=== PATIENT | male | born 1955 | race Caucasian/White ===

== ENCOUNTER 2017-01-26 12:06 | Emergency (ER) | payer MEDICARE ==
[~2017-01-26] VITALS: Ht 182.9 cm; Wt 88.0 kg
[~2017-01-26 12:06] MED LIST: /OCUVTA PO; /PANT40TA; /PANT40TA OR; /WARF5TA; /WARF5TA OR; /WARF5TA PO; ASPI81TA85 PO; ATORVASTATIN PO; BABY81CH; BABY81CH OR; BACT800T OR; BENI20TA11; BENI20TA11 OR; BENI40TA3 PO; CLOP75TA2 PO; COUM10TA; COUM7.5T PO; ENOX40SY; FISH1000 PO; GLUC500T; KEFL500C OR; LIPI20TA OR; LIPI80TA; LOPR50TA; LOPR50TA OR; METFPOW4; METO50TA2 PO; NICO21DI4; NITR0.4S; OMEP20CA3 PO; OMEP20TA7 OR; PAIN325T OR; PERC2.5T PO; PERCOCET PO; PLAV75TA2; PLAV75TA2 OR; TYLE325T5 PO; VIBR100C PO; metformin
[2017-01-26] MEDS ORDERED: XYZA5TAB4 PO (12:34)
[2017-01-26] MEDS ORDERED: AMLO10TA2 PO (12:34)
[2017-01-26] MEDS ORDERED: GABA-279 PO (12:34)
[2017-01-26] MEDS ORDERED: XARE20TA PO (12:34)
[2017-01-26 12:54] LABS: BASO % 0.7 % (0.0-1.0); EOS # 0.3 K/mm3 (0.0-0.50); EOS % 4.3 % (0.0-3.0); LARGE UNSTAINED CELL # 0.1 K/mm3 (0.0-0.4); LARGE UNSTAINED CELL % 1.7 % (0.0-4.0); LYMPH # 2.2 K/mm3 (1.5-4.5); LYMPH % 32.1 % (24.0-44.0); MEAN CORPUSCULAR HEMOGLOBIN 31.9 pg (27.0-33.0); MEAN CORPUSCULAR VOLUME 91.1 fl (80.0-96.0); MONO # 0.5 K/mm3 (0.0-0.8); MONO % 7.5 % (0.0-5.0); NEUTROPHILS # 3.8 K/mm3 (1.8-7.7); NEUTROPHILS % 53.7 % (36.0-66.0); PLATELET COUNT, AUTOMATED 196 k/mm3 (150-450); RED CELL DISTRIBUTION WIDTH 12.6 % (11.5-14.5)
[2017-01-26 13:02] LABS: INR 1.84
--- NOTE | 2017-01-26 13:12 | REP ---
NONCONTRAST HEAD CT: HISTORY: Headache and vertigo. COMPARISON STUDY: October 30, 2015 FINDINGS: Bone window settings demonstrate an intact bony calvarium. There is mucosal thickening affecting the frontal, ethmoidal, sphenoidal, and maxillary sinuses, consistent with polysinusitis. These changes are a little more prominent than on the comparison study. No intraorbital abnormality is seen. There is mild diffuse cerebral atrophy. Vascular calcification is again noted in the carotid arteries distally and in the right distal vertebral artery. There is no evidence of intracranial hemorrhage. No extra-axial fluid collection is seen. No infarct, mass, or midline shift is observed. Childers-white differentiation pattern is normal. IMPRESSION: Vascular calcification and diffuse mild atrophy again noted. No acute intracranial abnormality. Polysinusitis changes. Signed by Gilmar Gan MD 01/26/2017 01:19 P
[2017-01-26] MEDS ORDERED: NS 1,000 ML IV ONE (13:15)
[2017-01-26 13:17] LABS: ANION GAP 8 MEQ/L (8-16); BLOOD UREA NITROGEN 12 MG/DL (7-18); CALCIUM LEVEL 8.9 MG/DL (8.8-10.2); CARBON DIOXIDE LEVEL 26 MEQ/L (21-32); CHLORIDE LEVEL 100 MEQ/L (98-107); CREATININE FOR GFR 1.05 MG/DL (0.70-1.30); GLOMERULAR FILTRATION RATE > 60.0 (>49); GLUCOSE, FASTING 100 MG/DL (80-110); POTASSIUM SERUM 4.1 MEQ/L (3.5-5.1); SODIUM LEVEL 134 MEQ/L (136-145)
--- NOTE | 2017-01-26 13:18 | REP ---
CT abdomen and pelvis without IV or oral contrast: History: Abdominal pain and vomiting. Comparison study June 07, 2013. 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 There is mild bilateral lower lobe linear fibrosis in the lung lomas unchanged. No pleural effusion or upper abdominal ascites is seen. The liver and spleen are normal in size and homogeneous in texture. No adrenal lesion is seen. The gallbladder and pancreas are unremarkable. There is vascular calcification. No evidence of aortic aneurysm. There is no evidence of hydronephrosis or renal mass on either side. No calculus is observed. No retroperitoneal mass or adenopathy is seen. A normal appendix is observed in the right lower quadrant. Small and large intestinal bowel loops are unremarkable in the abdomen and pelvis. No abdominal wall defect is seen. Urinary bladder, prostate, and seminal vesicles are unremarkable. Bone window settings show no bony destructive lesion. There are some degenerative changes in the lumbar spine and spurring is noted in the symphysis pubis. Impression: No acute abdominal or pelvic abnormality. Normal appendix seen. No evidence of urinary tract calculus. Signed by Gilmar Gan MD 01/26/2017 01:19 P
[2017-01-26 13:24] LABS: ALBUMIN 3.7 GM/DL (3.2-5.2); ALBUMIN/GLOBULIN RATIO 1.16 (1.00-1.93); ALKALINE PHOSPHATASE 167 U/L (45-117); ALT/SGPT 98 U/L (12-78); AST/SGOT 87 U/L (15-37); BILIRUBIN,DIRECT 0.1 MG/DL (0.0-0.2); BILIRUBIN,TOTAL 0.3 MG/DL (0.2-1.0); FREE T4 1.23 NG/DL (0.76-1.46); TOTAL PROTEIN 6.9 GM/DL (6.4-8.2)
--- NOTE | 2017-01-26 13:55 | REP ---
Clinical: Dizziness. Technique: PA and lateral. Comparison: 04/23/2016. Findings: Mediastinum and cardiac silhouette are stable. Evidence for prior sternotomy and CABG again noted. Lung lomas demonstrate chronic stable changes without acute consolidation, effusion, or pneumothorax. Impression: Chronic stable changes. No acute cardiopulmonary process appreciated. Signed by Pradip Schwartz MD 01/26/2017 01:46 P
[2017-01-26 15:31] VITALS: BP 133/78
--- NOTE | 2017-01-27 10:12 | ECGEPIP ---
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
== END 2017-01-26 15:33 | disposition left against medical advice (07) ==
LOC: M ED 13:22
DX: I95.9 Hypotension, unspecified (principal); R42 Dizziness and giddiness; I25.10 Atherosclerotic heart disease of native coronary artery without angina pectoris; I10 Essential (primary) hypertension; K21.9 Gastro-esophageal reflux disease without esophagitis; E78.5 Hyperlipidemia, unspecified; R51 Headache; F17.200 Nicotine dependence, unspecified, uncomplicated; Z86.711 Personal history of pulmonary embolism; Z95.1 Presence of aortocoronary bypass graft; Z79.01 Long term (current) use of anticoagulants; Z79.82 Long term (current) use of aspirin; Z79.899 Other long term (current) drug therapy; Z88.5 Allergy status to narcotic agent; Z88.8 Allergy status to other drugs, medicaments and biological substances; Z91.030 Bee allergy status

== ENCOUNTER → 2017-05-13 | Outpatient (REF) | payer MEDICARE ==
[~2017-05-13] MED LIST changes: +AMLO10TA2 PO; +GABA-279 PO; +XARE20TA PO; +XYZA5TAB4 PO
[2017-05-13 15:16] LABS: FERRITIN 27 NG/ML (26-388); PERCENT SATURATION 9.5 % (19.7-50.0); TOTAL IRON BINDING CAPACITY 357 UG/DL (250-450); TOTAL PROTEIN 7.3 GM/DL (6.4-8.2)
[2017-05-13 15:52] LABS: INR 1.68
[2017-05-15 00:06] LABS: SJOGREN'S ANTI SS-A <0.2 AI (0.0-0.9); SJOGREN'S ANTI SS-B 0.7 AI (0.0-0.9); TISSUE TRANSGLUTAMINASE IgG <2 U/mL (0-5)
[2017-05-18 10:58] LABS: ALBUMIN % 54.8 % (55.8-66.1); GAMMA GLOBULIN % 15.2 % (11.1-18.8)
== END ==
LOC: M LAB REF 14:18
PROVIDERS: ATTEND Nurse Practitioner Family
DX: R94.5 Abnormal results of liver function studies (principal)

== ENCOUNTER → 2017-06-15 | Outpatient (CLI) | payer MEDICARE ==
[~2017-06-15] MED LIST changes: +GASTROGRAFIN SOLUTION 30ML (Q9963) As Ordered ONE; +ISOVUE-370 76% 100ML VIAL (Q9967) As Ordered ONE
--- NOTE | 2017-06-15 11:17 | REP ---
CT of the abdomen pelvis without and with IV contrast and with bowel contrast: Comparison is 01/26/2017. The visualized lung lomas demonstrate a 4 mm nodule and a 6 mm nodule anteriorly inferiorly in the upper lobe of the right lung. These are unchanged from a prior chest CT dated 04/04/2013. The hepatic parenchyma is homogeneous on both phases of the study. There are no hepatic masses. The radiodensity of the liver is similar to the spleen after IV contrast and slightly greater than the spleen without IV contrast. There is no evidence of hepato steatosis. There is no cholelithiasis. Gallbladder is unremarkable. There is no intrahepatic or extrahepatic biliary duct dilatation. The pancreas is unremarkable. The spleen is normal size and unremarkable. The adrenals, kidneys and abdominal aorta are unremarkable except for occasional calcified atheroma. There is no retroperitoneal adenopathy. There is no bowel distension. Mesentery is unremarkable. Pelvis: The appendix is unremarkable. The bladder is unremarkable. There is wall thickening of the sigmoid colon. This is nonspecific and could be artifact from under distension or could be evidence for colitis in the appropriate clinical setting. There is no ascites or adenopathy. Impression: Stable right lung nodules as described. The liver is unremarkable on both phases of the study. There is no biliary duct dilatation. There is no ascites or adenopathy. There is wall thickening of the sigmoid colon. This is nonspecific and could be artifact from under distension or could be evidence for colitis in the appropriate clinical setting. No diverticuli are identified. Signed by Wagner Engle MD 06/15/2017 11:09 A
== END ==
LOC: M RAD 08:47
PROVIDERS: ATTEND Internal Medicine Gastroenterology
DX: R63.4 Abnormal weight loss (principal)
CPT/HCPCS: 74178; Q9963; Q9967

== ENCOUNTER → 2017-11-12 | Outpatient (CLI) | payer MEDICARE ==
[2017-11-12 17:43] LABS: URIC ACID 8.4 MG/DL (3.5-7.2)
== END ==
LOC: M WUC 10:54
DX: M79.671 Pain in right foot (principal)
CPT/HCPCS: 84550

== ENCOUNTER → 2018-12-14 | Outpatient (CLI) | payer MEDICARE ==
[~2018-12-14] MED LIST changes: -/OCUVTA PO; -/PANT40TA; -/PANT40TA OR; -/WARF5TA; -/WARF5TA OR; -/WARF5TA PO; -AMLO10TA2 PO; +AMLO10TA5 PO; +COUM1TAB17; +COUM1TAB17 OR; +COUM1TAB17 PO; -ENOX40SY; +GABA-1171 PO; -GABA-279 PO; -GASTROGRAFIN SOLUTION 30ML (Q9963) As Ordered ONE; -ISOVUE-370 76% 100ML VIAL (Q9967) As Ordered ONE; +LOVE1INJ; +OXYC1TAB23 PO; -PERCOCET PO; +PROS2TAB2 PO; +PROT1TAB2; +PROT1TAB2 OR
[2018-12-14 15:14] LABS: BASO # 0.1 10^3/uL (0.0-0.2); BASO % 0.3 % (0.0-1.0); EOS % 0.1 % (0.0-3.0); HEMATOCRIT 37.3 % (42.0-52.0); HEMOGLOBIN 12.5 g/dl (13.5-17.5); LYMPH # 2.3 10^3/uL (1.5-4.5); LYMPH % 14.1 % (24.0-44.0); MEAN CORPUSCULAR HEMOGLOBIN 28.9 pg (27.0-33.0); MEAN CORPUSCULAR HGB CONC 33.5 g/dl (32.0-36.5); MEAN CORPUSCULAR VOLUME 86.3 fl (80.0-96.0); MONO % 12.4 % (0.0-5.0); NEUTROPHILS % 72.6 % (36.0-66.0); PLATELET COUNT, AUTOMATED 276 10^3/uL (150-450); RED BLOOD COUNT 4.32 10^6/uL (4.30-6.10); WHITE BLOOD COUNT 16.5 10^3/uL (4.0-10.0)
--- NOTE | 2018-12-14 15:20 | REP ---
Clinical: Left lower extremity pain. Technique: Real time vazquez scale and color Doppler evaluation using linear high frequency transducer. Findings: Ultrasound examination of the left lower extremity deep venous structures from the common femoral vein to the popliteal vein demonstrates normal compressibility, flow, and wave patterns and response respiration and augmentation. There is no evidence for deep venous thrombosis. Connecting fluid collections are identified along the medial and lateral aspect of the knee measuring 11.7 x 2.2 x 4.1 cm, and 9.0 x 2.2 x 5.4 cm respectively. Impression: 1. No deep venous thrombosis. 2. Connecting fluid collection along the medial and lateral aspect of the knee. Electronically Signed by Pradip Schwartz MD 12/14/2018 03:12 P
[2018-12-14 15:41] LABS: MONO # 2.1 10^3/uL (0.0-0.8)
== END ==
LOC: M LAB 14:03
PROVIDERS: ATTEND Physician Assistant
DX: M79.605 Pain in left leg (principal)

== ENCOUNTER → 2019-06-06 | Outpatient (REF) | payer MEDICARE ==
[2019-06-07 08:52] LABS: PTH INTACT 25.4 PG/ML (18.5-88.0)
== END ==
LOC: M LAB REF 18:45
PROVIDERS: ATTEND Nurse Practitioner Adult Health
DX: D72.829 Elevated white blood cell count, unspecified (principal); E83.52 Hypercalcemia; K21.9 Gastro-esophageal reflux disease without esophagitis

== ENCOUNTER 2019-12-25 15:46 | Inpatient (IN) | payer MEDICARE ==
[~2019-12-25] VITALS: Ht 182.9 cm; Wt 86.0 kg
[2019-12-25 16:46] LABS: BASO # 0.1 10^3/uL (0.0-0.2); BASO % 0.6 % (0.0-1.0); EOS # 0.2 10^3/uL (0.0-0.5); HEMATOCRIT 28.9 % (42.0-52.0); HEMOGLOBIN 10.2 g/dl (13.5-17.5); LYMPH # 2.1 10^3/uL (1.5-5.0); LYMPH % 21.6 % (24.0-44.0); MEAN CORPUSCULAR HEMOGLOBIN 29.5 pg (27.0-33.0); MEAN CORPUSCULAR HGB CONC 35.3 g/dl (32.0-36.5); MEAN CORPUSCULAR VOLUME 83.5 fl (80.0-96.0); MONO # 0.9 10^3/uL (0.0-0.8); MONO % 9.1 % (0.0-5.0); NEUTROPHILS # 6.5 10^3/uL (1.5-8.5); NEUTROPHILS % 66.2 % (36.0-66.0); PLATELET COUNT, AUTOMATED 323 10^3/uL (150-450); RED BLOOD COUNT 3.46 10^6/uL (4.30-6.10); WHITE BLOOD COUNT 9.9 10^3/uL (4.0-10.0)
[2019-12-25 17:12] LABS: ALT/SGPT 80 U/L (12-78); BILIRUBIN,DIRECT 0.1 MG/DL (0.0-0.2); BILIRUBIN,TOTAL 0.4 MG/DL (0.2-1.0); BLOOD UREA NITROGEN 10 MG/DL (7-18); CALCIUM LEVEL 9.7 MG/DL (8.8-10.2); CARBON DIOXIDE LEVEL 24 MEQ/L (21-32); CHLORIDE LEVEL 95 MEQ/L (98-107); CK-MB VALUE MASS 2.3 NG/ML (<3.6); CPK CREATINE PHOSPHOKINASE 105 U/L (39-308); CREATININE FOR GFR 0.89 MG/DL (0.70-1.30); GLOMERULAR FILTRATION RATE > 60.0 (>49); GLUCOSE, FASTING 89 MG/DL (70-100); LIPASE 191 U/L (73-393); MAGNESIUM LEVEL 1.3 MG/DL (1.8-2.4); MB/CK RELATIVE INDEX 2.19 (< OR =4); PHOSPHORUS LEVEL 2.5 MG/DL (2.5-4.9); POTASSIUM SERUM 4.3 MEQ/L (3.5-5.1); SODIUM LEVEL 124 MEQ/L (136-145); TOTAL PROTEIN 8.1 GM/DL (6.4-8.2); TROPONIN I < 0.02 NG/ML (< 0.10)
--- NOTE | 2019-12-25 17:30 | REP ---
CHEST, SINGLE VIEW: Single view of the chest is performed. There is no acute infiltrate. The heart is normal in size. Mediastinal silhouette is unchanged. Multiple sternal wires and mediastinal clips are present. IMPRESSION: No acute pulmonary disease. Electronically Signed by Wagner Childers MD 12/25/2019 07:50 P
[2019-12-25 17:52] LABS: FREE T4 1.26 NG/DL (0.76-1.46)
[2019-12-25] MEDS ORDERED: PANTOPRAZOLE 40MG INJ (PROTONIX) (C9113) IV ONE (18:00)
[2019-12-25] MEDS ORDERED: ECOT81TA5 PO (18:16)
[2019-12-25] MEDS ORDERED: ATOR40TA75 PO (18:16)
[2019-12-25] MEDS ORDERED: FISH1000 PO (18:16)
[2019-12-25] MEDS ORDERED: FLON1SPR (18:16)
[2019-12-25] MEDS ORDERED: OLME20TA2 PO (18:16)
[2019-12-25] MEDS ORDERED: METO25TA4 PO (18:16)
[2019-12-25] MEDS ORDERED: OMEP-218 PO (18:16)
--- NOTE | 2019-12-25 18:44 | HPEPDOC ---
General Date of Admission Dec 25, 2019 at 18:09 Date of Service: Dec 25, 2019 Chief Complaint The patient is a 64-year-old male admitted with a reason for visit of Anemia,Hyponatremia. Source: Patient Exam Limitations: No limitations Timing/Duration: 24 hours Severity: Mild History of Present Illness Patient 64 years old male with past medical history of coronary artery diseases, CABG, PE, gastric ulcer presented hospital with history of heart pounding. Patient stated that he started feeling heart racing in the morning. He checked his blood pressure and it was elevated to 170/80. He denied any chest pain or shortness of breath. In emergency room patient was found to have positive stool for occult blood, hemoglobin level of 10 and hyponatremia of 124. Chest x-ray was done and it was negative for acute pulmonary diseases. EKG showed normal sinus rhythm, no acute ischemic changes Of note patient stated that he likes to drink a lot of fluid, he doesn't have history of alcoholism. 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 Home Medications Scheduled Amlodipine Besylate (Amlodipine Besylate) 10 Mg Tab, 10 MG PO DAILY, (Reported) Aspirin (Ecotrin) 81 Mg Tablet.dr, 81 MG PO DAILY, (Reported) Atorvastatin Calcium (Atorvastatin Calcium) 40 Mg Tablet, 40 MG PO DAILY, (Reported) Fluticasone Propionate (Flonase Allergy Relief) 9.9 Ml [place].susp, 2 SPRAYS NA DAILY, (Reported) Metoprolol Tartrate (Metoprolol Tartrate) 25 Mg Tablet, 25 MG PO BID, (Reported) Olmesartan Medoxomil (Olmesartan Medoxomil) 20 Mg Tablet, 20 MG PO DAILY, (Reported) [place]-3 Fatty Acids/Fish Oil (Fish Oil 1,000 mg Capsule) 1 Each Capsule, 1,000 MG PO DAILY, (Reported) Omeprazole (Omeprazole) 20 Mg Capsule.dr, 20 MG PO DAILY, (Reported) Rivaroxaban (Xarelto) 20 Mg Tab, 20 MG PO DAILY, (Reported) Allergies Coded Allergies: bee venom protein (honey bee) (Verified Allergy, Severe, DIAPHORETIC, SWEATING, SWELLING, 12/25/19) VALENTINA Inhibitors (Verified Allergy, Unknown, 12/25/19) morphine (Verified Allergy, Unknown, 12/25/19) Past Medical History Medical History Hyperlipidemia, coronary artery diseases, 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, CABG , gastric ulcer Surgical History CABG Social History * Smoker: former Smoker Alcohol: occationally Drugs: denies A-FIB/CHADSVASC A-FIB History Current/History of A-Fib/PAF?: No Current PO Anticoag Therapy: No Review of Systems Constitutional: Denies: Chills Eyes: Denies: Pain, Vision change ENT: Denies: Head Aches, Ear Pain Skin: Denies: Rash, Lesions Pulmonary: Denies: Dyspnea, Cough Cardiovascular: Reports: Palpitations; Denies: Chest Pain Gastrointestinal: Denies: Nausea, Vomiting Genitourinary: Denies: Dysuria Hematologic: Denies: Bruising Endocrine: Denies: Polydipsia, Polyphagia Musculoskeletal: Denies: Neck Pain Neurological: Denies: Weakness Psych: Reports: Mood Normal Physical Examination General Exam: Positive: Alert, Cooperative Eye Exam: Positive: PERRLA ENT Exam: Positive: Atraumatic Neck Exam: Positive: Supple; Negative: JVD Chest Exam: Positive: Clear to auscultation Heart Exam: Positive: Rate Normal Telemetry: Positive: No significant arrhythmia Abdomen Exam: Positive: Normal bowel sounds Extremity Exam: Negative: Clubbing Skin Exam: Positive: Nl turgor and temperature Neuro Exam: Positive: Normal Gait Psych Exam: Positive: Mental status NL Vital Signs Vital Signs Date Time Temp Pulse Resp B/P (MAP) Pulse Ox O2 Delivery O2 Flow Rate FiO2 12/25/19 18:07 75 18 96 Room Air 12/25/19 18:00 124/66 (85) 12/25/19 15:55 98.3 Laboratory Data Labs 24H Laboratory Tests 2 12/25/19 16:23: Immature Granulocyte % (Auto) 0.5, Neutrophils (%) (Auto) 66.2H, Lymphocytes (%) (Auto) 21.6L, Monocytes (%) (Auto) 9.1H, Eosinophils (%) (Auto) 2.0, Basophils (%) (Auto) 0.6, Neutrophils # (Auto) 6.5, Lymphocytes # (Auto) 2.1, Monocytes # (Auto) 0.9H, Eosinophils # (Auto) 0.2, Basophils # (Auto) 0.1, Nucleated Red Blood Cells % (auto) 0.0, Anion Gap 5L, Glomerular Filtration Rate > 60.0, Osmolality 258L, Calcium Level 9.7, Phosphorus Level 2.5, Magnesium Level 1.3L, Total Bilirubin 0.4, Direct Bilirubin 0.1, Aspartate Amino Transf (AST/SGOT) 65H, Alanine Aminotransferase (ALT/SGPT) 80H, Alkaline Phosphatase 177H, Total Creatine Kinase 105, Creatine Kinase MB 2.3, Creatine Kinase MB Relative Index 2.19, Troponin I < 0.02, Total Protein 8.1, Albumin 4.0, Albumin/Globulin Ratio 0.98L, Lipase 191, Thyroid Stimulating Hormone (TSH) 1.550, Free Thyroxine 1.26 CBC/BMP Laboratory Tests 12/25/19 16:23 Assessment/Plan Patient 64 years old male with past medical history of coronary artery diseases, CABG, PE, gastric ulcer presented hospital with history of heart pounding. Patient stated that he started feeling heart racing in the morning. He checked his blood pressure and it was elevated to 170/80. He denied any chest pain or shortness of breath. In emergency room patient was found to have positive stool for occult blood, hemoglobin level of 10 and hyponatremia of 124. Chest x-ray was done and it was negative for acute pulmonary diseases. Of note patient stated that he likes to drink a lot of fluid, he doesn't have history of alcoholism. 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 Problems (1) Acute blood loss anemia Status: Acute Problem Text: Patient hemoglobin dropped from 12 his baseline to 10 Most likely due to GI blood loss, stool blood positive I'll hold xarelto due to GI blood loss H&H every 6 hours We will transfuse if hemoglobin less than 7 PPI (2) Hyponatremia Status: Acute Problem Text: Unknown etiology for now Patient is euvolemic Most likely tea and toast diet I will check urine osmolarity, urine sodium Fluid restriction for now Sodium level every 4 hours BMP every 6 hours We will check cortisol a.m. for adrenal insufficiency Sodium elevation should not exceed 6-8 mEq for 24 hours (3) Coronary artery disease Status: Chronic Problem Text: Continue home cardioprotective medications I will hold aspirin due to GI bleed Plan / VTE VTE Prophylaxis Ordered?: No VTE Exclusion Pharmacological: Active Bleeding PERRY SOL DO Dec 25, 2019 18:44
[2019-12-25 19:51] LABS: HEMATOCRIT 28.4 % (42.0-52.0)
[2019-12-25 20:36] LABS: BLOOD UREA NITROGEN 11 MG/DL (7-18); CALCIUM LEVEL 9.4 MG/DL (8.8-10.2); CARBON DIOXIDE LEVEL 22 MEQ/L (21-32); CHLORIDE LEVEL 97 MEQ/L (98-107); GLOMERULAR FILTRATION RATE > 60.0 (>49); GLUCOSE, FASTING 121 MG/DL (70-100); MAGNESIUM LEVEL 1.2 MG/DL (1.8-2.4); POTASSIUM SERUM 4.6 MEQ/L (3.5-5.1); SODIUM LEVEL 127 MEQ/L (136-145)
[2019-12-25] MEDS: METOPROLOL TART 25 MG TABLET PO SCH (21:13)
[2019-12-25 22:00] VITALS: BP 116/66
[2019-12-26 01:08] LABS: HEMATOCRIT 26.8 % (42.0-52.0); HEMOGLOBIN 9.3 g/dl (13.5-17.5)
[2019-12-26 01:34] LABS: BLOOD UREA NITROGEN 13 MG/DL (7-18); CALCIUM LEVEL 9.5 MG/DL (8.8-10.2); CARBON DIOXIDE LEVEL 25 MEQ/L (21-32); CHLORIDE LEVEL 97 MEQ/L (98-107); CREATININE FOR GFR 0.88 MG/DL (0.70-1.30); GLOMERULAR FILTRATION RATE > 60.0 (>49); GLUCOSE, FASTING 104 MG/DL (70-100); POTASSIUM SERUM 4.5 MEQ/L (3.5-5.1); SODIUM LEVEL 128 MEQ/L (136-145)
[2019-12-26 04:18] LABS: HEMATOCRIT 27.5 % (42.0-52.0); HEMOGLOBIN 9.5 g/dl (13.5-17.5); MEAN CORPUSCULAR HEMOGLOBIN 29.3 pg (27.0-33.0); MEAN CORPUSCULAR HGB CONC 34.5 g/dl (32.0-36.5); MEAN CORPUSCULAR VOLUME 84.9 fl (80.0-96.0); PLATELET COUNT, AUTOMATED 298 10^3/uL (150-450); RED BLOOD COUNT 3.24 10^6/uL (4.30-6.10); WHITE BLOOD COUNT 8.8 10^3/uL (4.0-10.0)
[2019-12-26 04:34] LABS: BLOOD UREA NITROGEN 12 MG/DL (7-18); CALCIUM LEVEL 9.8 MG/DL (8.8-10.2); CARBON DIOXIDE LEVEL 24 MEQ/L (21-32); CHLORIDE LEVEL 98 MEQ/L (98-107); CREATININE FOR GFR 0.86 MG/DL (0.70-1.30); GLOMERULAR FILTRATION RATE > 60.0 (>49); GLUCOSE, FASTING 101 MG/DL (70-100); MAGNESIUM LEVEL 1.3 MG/DL (1.8-2.4); POTASSIUM SERUM 4.4 MEQ/L (3.5-5.1); SODIUM LEVEL 129 MEQ/L (136-145)
[2019-12-26 06:00] VITALS: BP 116/60
[2019-12-26 06:46] VITALS: BP 128/68
[2019-12-26 08:00] LABS: CORTISOL AM 17.8 UG/DL (4.3-22.4)
[2019-12-26 08:19] LABS: HEMATOCRIT 28.5 % (42.0-52.0); HEMOGLOBIN 9.9 g/dl (13.5-17.5)
[2019-12-26 08:39] VITALS: BP 128/68
[2019-12-26] MEDS: METOPROLOL TART 25 MG TABLET PO SCH (08:40)
[2019-12-26] MEDS ORDERED: PANTOPRAZOLE 40MG INJ (PROTONIX) (C9113) IV SCH (09:00)
[2019-12-26] MEDS ORDERED: OLMESARTAN MEDOXOMIL 20 MG TAB (BENICAR) PO SCH (09:00)
[2019-12-26] MEDS ORDERED: FLUTICASONE PROP 0.05% NASAL SPRAY 16 GM (FLONASE) SCH (09:00)
[2019-12-26] MEDS ORDERED: MAGNESIUM OXIDE 400 MG TAB (MAG-OX) PO SCH (09:00)
[2019-12-26] MEDS ORDERED: ATORVASTATIN 20 MG TAB PO SCH (09:00)
[2019-12-26] MEDS ORDERED: amLODIPine 10 MG TAB PO SCH (09:00)
[2019-12-26] MEDS ORDERED: MAG SULF 1GM/100ML (MAG RUN) 1 GM in IV 1 EA IV ONE (09:00)
--- NOTE | 2019-12-26 09:12 | ECGEPIP ---
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
[2019-12-26] MEDS ORDERED: OMEP40CA97 PO (10:38)
[2019-12-26 12:38] LABS: CREATININE,RANDOM URINE 97.6 MG/DL
--- NOTE | 2019-12-26 13:48 | DS.PDOC ---
Discharge Summary General Date of Admission Dec 25, 2019 at 18:09 Date of Discharge 12/26/19 Discharge Summary PROCEDURES PERFORMED DURING STAY: [None]. ADMITTING DIAGNOSES: Acute blood loss anemia Hyponatremia Coronary artery disease DISCHARGE DIAGNOSES: Acute blood loss anemia Hyponatremia Coronary artery disease COMPLICATIONS/CHIEF COMPLAINT: Anemia,Hyponatremia. HISTORY OF PRESENT ILLNESS: Patient 64 years old male with past medical history of coronary artery diseases, CABG, PE, gastric ulcer presented hospital with history of heart pounding. Patient stated that he started feeling heart racing in the morning. He checked his blood pressure and it was elevated to 170/80. He denied any chest pain or shortness of breath. In emergency room patient was found to have positive stool for occult blood, hemoglobin level of 10 and hyponatremia of 124. Chest x-ray was done and it was negative for acute pulmonary diseases. Of note patient stated that he likes to drink a lot of fluid, he doesn't have history of alcoholism. 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 HOSPITAL COURSE: During hospital course patient received treatment for hyponatremia. Etiology of hyponatremia most likely tea and toast diet. Hemoglobin was stable. No signs of acute GI bleed. Patient will need follow-up with generator assembler in the outpatient settings for endoscopy and colonoscopy. I talked to Dr. Botello, he recommended to stop aspirin and hold xarelto for 1 day. DISCHARGE MEDICATIONS: Please see below. ALLERGIES: Please see below. PHYSICAL EXAMINATION ON DISCHARGE: VITAL SIGNS: Please see below. Physical Examination General Exam: Positive: Alert, Cooperative Eye Exam: Positive: PERRLA ENT Exam: Positive: Atraumatic Neck Exam: Positive: Supple; Negative: JVD Chest Exam: Positive: Clear to auscultation Heart Exam: Positive: Rate Normal Telemetry: Positive: No significant arrhythmia Abdomen Exam: Positive: Normal bowel sounds Extremity Exam: Negative: Clubbing Skin Exam: Positive: Nl turgor and temperature Neuro Exam: Positive: Normal Gait Psych Exam: Positive: Mental status NL LABORATORY DATA: Please see below. IMAGING:CHEST, SINGLE VIEW: Single view of the chest is performed. There is no acute infiltrate. The heart is normal in size. Mediastinal silhouette is unchanged. Multiple sternal wires and mediastinal clips are present. IMPRESSION: No acute pulmonary disease. PROGNOSIS: Fair ACTIVITY: [As tolerated]. DIET: Cardiac DISPOSITION: 01 Home, Self-Care. DISCHARGE INSTRUCTIONS: Follow-up with generator assembler, automotive service director and PCP in the outpatient settings Hold aspirin and hold xarelto for 1 day DISCHARGE CONDITION: [Stable]. TIME SPENT ON DISCHARGE: Greater than 20 minutes. Vital Signs/I&Os Vital Signs Date Time Temp Pulse Resp B/P (MAP) Pulse Ox O2 Delivery O2 Flow Rate FiO2 12/26/19 08:39 128/68 12/26/19 06:46 65 12/26/19 06:00 97.8 18 97 Room Air I&O- Last 24 Hours up to 6 AM 12/26/19 06:00 Intake Total 690 ml Output Total 950 ml Balance -260 ml Laboratory Data Labs 24H Laboratory Tests 2 12/25/19 16:23: Immature Granulocyte % (Auto) 0.5, Neutrophils (%) (Auto) 66.2H, Lymphocytes (%) (Auto) 21.6L, Monocytes (%) (Auto) 9.1H, Eosinophils (%) (Auto) 2.0, Basophils (%) (Auto) 0.6, Neutrophils # (Auto) 6.5, Lymphocytes # (Auto) 2.1, Monocytes # (Auto) 0.9H, Eosinophils # (Auto) 0.2, Basophils # (Auto) 0.1, Nucleated Red Blood Cells % (auto) 0.0, Anion Gap 5L, Glomerular Filtration Rate > 60.0, Osmolality 258L, Calcium Level 9.7, Phosphorus Level 2.5, Magnesium Level 1.3L, Total Bilirubin 0.4, Direct Bilirubin 0.1, Aspartate Amino Transf (AST/SGOT) 65H, Alanine Aminotransferase (ALT/SGPT) 80H, Alkaline Phosphatase 177H, Total Creatine Kinase 105, Creatine Kinase MB 2.3, Creatine Kinase MB Relative Index 2.19, Troponin I < 0.02, Total Protein 8.1, Albumin 4.0, Albumin/Globulin Ratio 0.98L, Lipase 191, Thyroid Stimulating Hormone (TSH) 1.550, Free Thyroxine 1.26 12/25/19 19:42: Anion Gap 8, Glomerular Filtration Rate > 60.0, Calcium Level 9.4, Magnesium Level 1.2L, Thyroid Stimulating Hormone (TSH) 1.360 12/26/19 00:58: Anion Gap 6L, Glomerular Filtration Rate > 60.0, Calcium Level 9.5 12/26/19 04:00: Nucleated Red Blood Cells % (auto) 0.0, Anion Gap 7L, Glomerular Filtration Rate > 60.0, Calcium Level 9.8, Magnesium Level 1.3L, Cortisol AM Sample 17.8 12/26/19 11:33: Urine Random Osmolality 222L, Urine Random Creatinine 97.6, Urine Random Sodium 32 CBC/BMP Laboratory Tests 12/25/19 16:23 12/25/19 19:42 12/26/19 00:58 12/26/19 04:00 12/26/19 07:57 Discharge Medications Scheduled Amlodipine Besylate (Amlodipine Besylate) 10 Mg Tab, 10 MG PO DAILY, (Reported) Atorvastatin Calcium (Atorvastatin Calcium) 40 Mg Tablet, 40 MG PO DAILY, (Reported) Fluticasone Propionate (Flonase Allergy Relief) 9.9 Ml [place].susp, 2 SPRAYS NA DAILY, (Reported) Metoprolol Tartrate (Metoprolol Tartrate) 25 Mg Tablet, 25 MG PO BID, (Reported) Olmesartan Medoxomil (Olmesartan Medoxomil) 20 Mg Tablet, 20 MG PO DAILY, (Reported) [place]-3 Fatty Acids/Fish Oil (Fish Oil 1,000 mg Capsule) 1 Each Capsule, 1,000 MG PO DAILY, (Reported) Omeprazole (Omeprazole) 40 Mg Capsule.dr, 40 MG PO DAILY Rivaroxaban (Xarelto) 20 Mg Tab, 20 MG PO DAILY, (Reported) Allergies Coded Allergies: bee venom protein (honey bee) (Verified Allergy, Severe, DIAPHORETIC, SWEATING, SWELLING, 12/25/19) VALENTINA Inhibitors (Verified Allergy, Unknown, 12/25/19) morphine (Verified Allergy, Unknown, 12/25/19) PERRY SOL DO Dec 26, 2019 13:48
== END 2019-12-26 12:30 | disposition home or self-care (01) | DRG 812 ==
LOC: EDBD 15:46 → M ED 15:46 → M ED INP 18:09 → ENRESERVDT 19:41 → ENRESERVTM 19:41 → M MSPAV 20:33
PROVIDERS: ADMIT Internal Medicine; ATTEND Internal Medicine
DX: D62 Acute posthemorrhagic anemia (principal); E87.1 Hypo-osmolality and hyponatremia; I25.10 Atherosclerotic heart disease of native coronary artery without angina pectoris; Z95.1 Presence of aortocoronary bypass graft; Z86.711 Personal history of pulmonary embolism; Z79.01 Long term (current) use of anticoagulants; Z79.899 Other long term (current) drug therapy; Z91.030 Bee allergy status; Z88.5 Allergy status to narcotic agent; Z88.8 Allergy status to other drugs, medicaments and biological substances; E78.5 Hyperlipidemia, unspecified; Z87.891 Personal history of nicotine dependence

== ENCOUNTER → 2020-01-03 | Outpatient (REF) | payer MEDICARE ==
[~2020-01-03] MED LIST changes: +ATOR40TA75 PO; +ECOT81TA5 PO; +FLON1SPR; +METO25TA4 PO; +OLME20TA2 PO; +OMEP-218 PO; +OMEP40CA97 PO
[2020-01-03 12:30] LABS: PERCENT SATURATION 5.4 % (19.7-50.0)
== END ==
LOC: M LAB REF 11:54
PROVIDERS: ATTEND Internal Medicine
DX: D64.9 Anemia, unspecified (principal); E87.1 Hypo-osmolality and hyponatremia

== ENCOUNTER → 2020-02-08 | Outpatient (CLI) | payer MEDICARE ==
[~2020-02-08] MED LIST changes: +ELIQ5TAB PO
[2020-02-08 10:48] LABS: BASO % 0.5 % (0.0-1.0); EOS # 0.3 10^3/uL (0.0-0.5); EOS % 3.7 % (0.0-3.0); HEMATOCRIT 28.5 % (42.0-52.0); LYMPH # 2.3 10^3/uL (1.5-5.0); MEAN CORPUSCULAR HEMOGLOBIN 28.6 pg (27.0-33.0); MEAN CORPUSCULAR HGB CONC 35.1 g/dl (32.0-36.5); MEAN CORPUSCULAR VOLUME 81.4 fl (80.0-96.0); MONO # 0.8 10^3/uL (0.0-0.8); MONO % 10.3 % (0.0-5.0); NEUTROPHILS # 4.6 10^3/uL (1.5-8.5); NEUTROPHILS % 57.1 % (36.0-66.0); PLATELET COUNT, AUTOMATED 298 10^3/uL (150-450)
[2020-02-08 11:06] LABS: CREATININE,RANDOM URINE 77.3 MG/DL
[2020-02-08 12:10] LABS: ALBUMIN 3.8 GM/DL (3.2-5.2); ALT/SGPT 75 U/L (12-78); BILIRUBIN,DIRECT 0.2 MG/DL (0.0-0.2); BILIRUBIN,TOTAL 0.6 MG/DL (0.2-1.0); BLOOD UREA NITROGEN 24 MG/DL (7-18); CALCIUM LEVEL 8.7 MG/DL (8.8-10.2); CARBON DIOXIDE LEVEL 24 MEQ/L (21-32); CHLORIDE LEVEL 98 MEQ/L (98-107); CREATININE FOR GFR 0.89 MG/DL (0.70-1.30); FERRITIN 21 NG/ML (26-388); GLOMERULAR FILTRATION RATE > 60.0 (>49); GLUCOSE, FASTING 95 MG/DL (70-100); IRON (FE) 27 UG/DL (65-175); PERCENT SATURATION 6.7 % (19.7-50.0); SODIUM LEVEL 129 MEQ/L (136-145); TOTAL IRON BINDING CAPACITY 404 UG/DL (250-450); TOTAL PROTEIN 7.5 GM/DL (6.4-8.2); VITAMIN B12 LEVEL 607 PG/ML
== END ==
LOC: M LAB 10:12
PROVIDERS: ATTEND Internal Medicine Gastroenterology
DX: D50.9 Iron deficiency anemia, unspecified (principal)

== ENCOUNTER → 2020-02-10 | Outpatient (CLI) | payer MEDICARE | LOC: M LABSMTC 09:34 | PROVIDERS: ATTEND Anesthesiology | DX: Z01.818 Encounter for other preprocedural examination (principal); Z11.59 Encounter for screening for other viral diseases | CPT/HCPCS: C9803; U0003 ==

== ENCOUNTER 2020-02-13 11:10 | Day surgery (SDC) | payer MEDICARE ==
[~2020-02-13] VITALS: Ht 182.9 cm; Wt 87.5 kg
[~2020-02-13 11:10] MED LIST changes: +NS 1,000 ML IV ONE
[2020-02-13] MEDS ORDERED: LIDOCAINE 2% 100MG/5ML SDV (FOR ANES.) As Ordered ONE (13:35)
[2020-02-13] MEDS ORDERED: propofoL 500 MG/50 ML VIAL As Ordered ONE (13:35)
--- NOTE | 2020-02-13 14:26 | ROOR ---
Patient Name: Sloan Alba Procedure Date: 02/13/2020 1:33 PM Date of : 1955 Age: 64 Room: [facility] Gender: Male Note Status: Finalized Procedure: Upper GI endoscopy Indications: Recent gastrointestinal bleeding, Gastrointestinal bleeding of unknown origin Providers: Mainor Corral MD Referring MD: TITA RIVERA JR, MD Requesting Provider: Medicines: Monitored Anesthesia Care Complications: No immediate complications. Procedure: Pre-Anesthesia Assessment: - Prior to the procedure, a History and Physical was performed, and patient medications and allergies were reviewed. The patient is competent. The risks and benefits of the procedure and the sedation options and risks were discussed with the patient. All questions were answered and informed consent was obtained. Patient identification and proposed procedure were verified by the physician, the nurse and the anesthesiologist in the procedure room. Mental Status Examination: alert and oriented. Airway Examination: normal oropharyngeal airway and neck mobility. Respiratory Examination: clear to auscultation. CV Examination: normal. Prophylactic Antibiotics: The patient does not require prophylactic antibiotics. Prior Anticoagulants: The patient has taken no previous anticoagulant or antiplatelet agents. ASA Grade Assessment: III - A patient with severe systemic disease. After reviewing the risks and benefits, the patient was deemed in satisfactory condition to undergo the procedure. The anesthesia plan was to use monitored anesthesia care (MAC). Immediately prior to administration of medications, the patient was re-assessed for adequacy to receive sedatives. The heart rate, respiratory rate, oxygen saturations, blood pressure, adequacy of pulmonary ventilation, and response to care were monitored throughout the procedure. The physical status of the patient was re-assessed after the procedure. The Endoscope was introduced through the mouth, and advanced to the second part of duodenum. The upper GI endoscopy was accomplished without difficulty. The patient tolerated the procedure well. Findings: The Z-line was regular and was found 41 cm from the incisors. Scattered mild inflammation characterized by erythema, friability and granularity was found in the gastric antrum. Biopsies were taken with a cold forceps for Helicobacter pylori testing. Verification of patient identification for the specimen was done by the physician and nurse using the patient's name, date and medical record number. Estimated blood loss was minimal. The duodenal bulb and second portion of the duodenum were normal. Biopsies for histology were taken with a cold forceps for evaluation of celiac disease. Impression: - Z-line regular, 41 cm from the incisors. - Gastritis. Biopsied. - Normal duodenal bulb and second portion of the duodenum. Biopsied. Recommendation: - Patient has a contact number available for emergencies. The signs and symptoms of potential delayed complications were discussed with the patient. Return to normal activities tomorrow. Written discharge instructions were provided to the patient. - High fiber diet. - Continue present medications. - Await pathology results. - Telephone GI clinic for pathology results in 2 weeks. - Return to primary care physician. Mainor Corral MD Mainor Corral MD 02/13/2020 2:25:46 PM Electronically signed by Mainor Corral MD Number of Addenda: 0 Note Initiated On: 02/13/2020 1:33 PM Estimated Blood Loss: Estimated blood loss was minimal.
[2020-02-13 14:41] VITALS: BP 116/56
--- NOTE | 2020-02-13 15:17 | ROOR ---
Patient Name: Sloan Alba Procedure Date: 02/13/2020 1:34 PM Date of : 1955 Age: 64 Room: [facility] Gender: Male Note Status: Finalized Procedure: Colonoscopy Indications: Acute post hemorrhagic anemia Providers: Mainor Corral MD Referring MD: TITA RIVERA JR, MD Requesting Provider: Medicines: Monitored Anesthesia Care Complications: No immediate complications. Procedure: Pre-Anesthesia Assessment: - Prior to the procedure, a History and Physical was performed, and patient medications and allergies were reviewed. The patient is competent. The risks and benefits of the procedure and the sedation options and risks were discussed with the patient. All questions were answered and informed consent was obtained. Patient identification and proposed procedure were verified by the physician, the nurse and the anesthesiologist in the procedure room. Mental Status Examination: alert and oriented. Airway Examination: normal oropharyngeal airway and neck mobility. Respiratory Examination: clear to auscultation. CV Examination: normal. Prophylactic Antibiotics: The patient does not require prophylactic antibiotics. Prior Anticoagulants: The patient has taken no previous anticoagulant or antiplatelet agents. ASA Grade Assessment: II - A patient with mild systemic disease. After reviewing the risks and benefits, the patient was deemed in satisfactory condition to undergo the procedure. The anesthesia plan was to use monitored anesthesia care (MAC). Immediately prior to administration of medications, the patient was re-assessed for adequacy to receive sedatives. The heart rate, respiratory rate, oxygen saturations, blood pressure, adequacy of pulmonary ventilation, and response to care were monitored throughout the procedure. The physical status of the patient was re-assessed after the procedure. The Colonoscope was introduced through the anus and advanced to the terminal ileum, with identification of the appendiceal orifice and IC valve. The colonoscopy was performed without difficulty. The patient tolerated the procedure well. The quality of the bowel preparation was good. The terminal ileum, ileocecal valve, appendiceal orifice, and rectum were photographed. Scope insertion time was 3 minutes. Scope withdrawal time was 9 minutes. The total duration of the procedure was 12 minutes. Findings: The perianal and digital rectal examinations were normal. The terminal ileum appeared normal. Four sessile polyps were found in the recto-sigmoid colon and descending colon. The polyps were 5 to 8 mm in size. These polyps were removed with a cold snare. Resection and retrieval were complete. Verification of patient identification for the specimen was done by the physician and nurse using the patient's name, date and medical record number. Estimated blood loss was minimal. Non-bleeding external and internal hemorrhoids were found during retroflexion. The hemorrhoids were small. Impression: - The examined portion of the ileum was normal. - Four 5 to 8 mm polyps at the recto-sigmoid colon and in the descending colon, removed with a cold snare. Resected and retrieved. - Non-bleeding external and internal hemorrhoids. Recommendation: - Patient has a contact number available for emergencies. The signs and symptoms of potential delayed complications were discussed with the patient. Return to normal activities tomorrow. Written discharge instructions were provided to the patient. - High fiber diet. - Continue present medications. - Await pathology results. - Repeat colonoscopy in 3 - 5 years for surveillance based on pathology results. - Telephone GI clinic for pathology results in 2 weeks. - Return to primary care physician. Mainor Corral MD Mainor Corral MD 02/13/2020 3:16:56 PM Electronically signed by Mainor Corral MD Number of Addenda: 0 Note Initiated On: 02/13/2020 1:34 PM Estimated Blood Loss: Estimated blood loss was minimal.
== END 2020-02-13 14:42 | disposition home or self-care (01) ==
LOC: M OPP 11:10
PROVIDERS: ATTEND Internal Medicine Gastroenterology
DX: K63.5 Polyp of colon (principal); K64.8 Other hemorrhoids; D62 Acute posthemorrhagic anemia; K29.70 Gastritis, unspecified, without bleeding; I10 Essential (primary) hypertension; I25.2 Old myocardial infarction; I20.9 Angina pectoris, unspecified; F17.210 Nicotine dependence, cigarettes, uncomplicated; Z79.899 Other long term (current) drug therapy; Z88.5 Allergy status to narcotic agent; Z88.8 Allergy status to other drugs, medicaments and biological substances; Z91.030 Bee allergy status; Z95.5 Presence of coronary angioplasty implant and graft

== ENCOUNTER → 2020-03-28 | Outpatient (REF) | payer MEDICARE ==
[~2020-03-28] MED LIST changes: -AMLO10TA5 PO; +AMLO1TAB25 PO; +ASPI81CH33 PO; -NS 1,000 ML IV ONE
[2020-03-28 13:59] LABS: PERCENT SATURATION 8.7 % (19.7-50.0)
[2020-03-28 14:05] LABS: FOLATE 13.5 NG/ML
[2020-03-28 14:19] LABS: CREATININE,RANDOM URINE 43.5 MG/DL; TOTAL PROTEIN,RANDOM URINE 21.7 MG/DL (0.0-12.0)
[2020-05-28 15:24] LABS: ADH PANEL OSMOLALITY SEE SEPARATE REPORT; ANTI-DIURETIC HORMONE SEE SEPARATE REPORT
== END ==
LOC: M LAB REF 12:08
PROVIDERS: ATTEND Internal Medicine
DX: D50.9 Iron deficiency anemia, unspecified (principal)

== ENCOUNTER → 2020-04-08 | Outpatient (REF) | payer MEDICARE | LOC: M LAB REF 11:06 | PROVIDERS: ATTEND Internal Medicine | DX: E87.1 Hypo-osmolality and hyponatremia (principal) ==

== ENCOUNTER → 2020-05-08 | Outpatient (REF) | payer MEDICARE ==
[2020-05-08 14:40] LABS: PERCENT SATURATION 50.3 % (19.7-50.0)
[2020-05-11 01:07] LABS: Alkaline Phosphatase Iso-Bone 18 % (12-68); Alkaline Phosphatase Iso-Intes 0 % (0-18); Alkaline Phosphatase Iso-Liver 82 % (13-88); TOTAL ALK PHOS 157 IU/L (39-117)
== END ==
LOC: M LAB REF 08:22
PROVIDERS: ATTEND Internal Medicine
DX: D50.9 Iron deficiency anemia, unspecified (principal); E78.1 Pure hyperglyceridemia; R79.89 Other specified abnormal findings of blood chemistry

== ENCOUNTER → 2020-05-16 | Outpatient (CLI) | payer MEDICARE ==
[~2020-05-16] MED LIST changes: +E-Z-PAQUE 96% w/w SUSP 176GM BTL As Ordered ONE
--- NOTE | 2020-06-10 10:28 | REP ---
SMALL BOWEL FOLLOW-THROUGH The procedure was performed by Karrie Jin [facility], under the direct supervision of Dr. Childers. The images were reviewed with Dr. Childers prior to dictation. The curriculum advisory teacher film shows no organomegaly or pathological masses. The intestinal gas pattern is nonspecific. Liquid barium was administered and the barium column was followed through the small bowel to the level of the terminal ileum. Small bowel transit time was approximately 90 minutes. During fluoroscopy, gentle palpation shows all loops are freely movable and pliable. There are no fixed or angulated loops. The small bowel mucosal pattern is normal in course and caliber. There is no transition to suggest a partial small bowel obstruction. Spot filming of the terminal ileum shows it to be unremarkable. IMPRESSION: Small bowel follow-through examination is within normal limits. 0.5 minutes of fluoroscopy time was utilized for this procedure. CHEMO
== END ==
LOC: M RAD 07:23
PROVIDERS: ATTEND Internal Medicine Gastroenterology
DX: D50.9 Iron deficiency anemia, unspecified (principal)

== ENCOUNTER → 2020-06-20 | Outpatient (REF) | payer MEDICARE ==
[~2020-06-20] MED LIST changes: -ASPI81CH33 PO; -E-Z-PAQUE 96% w/w SUSP 176GM BTL As Ordered ONE
[2020-06-20 16:42] LABS: PERCENT SATURATION 11.1 % (19.7-50.0)
== END ==
LOC: M LAB REF 16:11
PROVIDERS: ATTEND Internal Medicine
DX: D50.9 Iron deficiency anemia, unspecified (principal)

== ENCOUNTER → 2020-06-21 | Outpatient (CLI) | payer MEDICARE ==
--- NOTE | 2020-06-26 15:09 | REP ---
T-SPINE SERIES: 3-VIEWS HISTORY: Mid scapular pain and tenderness. COMPARISON: Chest CT study 10/10/2019. RADIOGRAPHIC FINDINGS: Frontal and lateral views show preserved vertebral body heights. No paravertebral soft tissue mass is seen. No fracture or collapse is seen. There is multilevel degenerative disc disease with discogenic spurring at mid and lower thoracic levels anteriorly and laterally. The aorta is tortuous and calcific. Median sternotomy wires are seen. Mediastinal clips are noted. The degenerative disc findings are unchanged from the 10/10/[address] multiplanar reformation images. IMPRESSION: No bony destructive lesion. Degenerative disc changes. No acute abnormality. MTDD
== END ==
LOC: M WUC 10:21
PROVIDERS: ATTEND Internal Medicine
DX: M51.34 Other intervertebral disc degeneration, thoracic region (principal); M25.78 Osteophyte, vertebrae

== ENCOUNTER → 2020-07-24 | Outpatient (CLI) | payer MEDICARE ==
[~2020-07-24] MED LIST changes: +ASPI81CH33 PO
== END ==
LOC: M LABSMTC 11:44
PROVIDERS: ATTEND Anesthesiology
DX: Z01.812 Encounter for preprocedural laboratory examination (principal); Z20.828 Contact with and (suspected) exposure to other viral communicable diseases

== ENCOUNTER 2020-07-29 11:05 | Day surgery (SDC) | payer MEDICARE ==
[~2020-07-29] VITALS: Ht 182.9 cm; Wt 91.2 kg
[~2020-07-29 11:05] MED LIST changes: +NS 1,000 ML IV ONE
[2020-07-29] MEDS ORDERED: fentaNYL 100 MCG/2 ML INJECTION (J3010) As Ordered ONE (11:54)
[2020-07-29] MEDS ORDERED: LIDOCAINE 2% 100MG/5ML SDV (FOR ANES.) As Ordered ONE (12:01)
[2020-07-29] MEDS ORDERED: propofoL 200 MG/20 ML VIAL As Ordered ONE ×3 (12:01→12:11)
[2020-07-29] MEDS ORDERED: propofoL 500 MG/50 ML VIAL As Ordered ONE (12:22)
--- NOTE | 2020-07-29 13:00 | ROOR ---
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 Procedure: Pre-Anesthesia Assessment: - Prior to the procedure, a History and Physical was performed, and patient medications and allergies were reviewed. The patient is competent. The risks and benefits of the procedure and the sedation options and risks were discussed with the patient. All questions were answered and informed consent was obtained. Patient identification and proposed procedure were verified by the physician, the nurse and the anesthesiologist in the procedure room. Mental Status Examination: alert and oriented. Airway Examination: normal oropharyngeal airway and neck mobility. Respiratory Examination: clear to auscultation. CV Examination: normal. Prophylactic Antibiotics: The patient does not require prophylactic antibiotics. Prior Anticoagulants: The patient has taken no previous anticoagulant or antiplatelet agents. ASA Grade Assessment: II - A patient with mild systemic disease. After reviewing the risks and benefits, the patient was deemed in satisfactory condition to undergo the procedure. The anesthesia plan was to use monitored anesthesia care (MAC). Immediately prior to administration of medications, the patient was re-assessed for adequacy to receive sedatives. The heart rate, respiratory rate, oxygen saturations, blood pressure, adequacy of pulmonary ventilation, and response to care were monitored throughout the procedure. The physical status of the patient was re-assessed after the procedure. The Colonoscope was introduced through the mouth, and advanced to the mid-jejunum. The upper GI endoscopy was accomplished without difficulty. The patient tolerated the procedure well. Findings: No gross lesions were noted in the entire esophagus. Scattered mild inflammation characterized by erythema and granularity was found in the gastric antrum. No gross lesions were noted in the duodenal bulb, in the second portion of the duodenum, in the third portion of the duodenum and in the fourth portion of the duodenum. Two 4 to 10 mm angioectasias with stigmata of recent bleeding were found in the jejunum. Coagulation for bleeding prevention using argon plasma at 0.8 liters/minute and 20 mcgovern was successful. For therapy of the AVM, one hemostatic clip was successfully placed. There was no bleeding at the end of the procedure. Exam of the jejunum was otherwise normal. An area mid-jejunum was tattooed with an injection of 0.5 mL of Adrienne ink. Impression: - No gross lesions in esophagus. - Gastritis. - No gross lesions in the duodenal bulb, in the second portion of the duodenum, in the third portion of the duodenum and in the fourth portion of the duodenum. - Two recently bleeding angioectasias in the jejunum. Treated with argon plasma coagulation (APC). Clip was placed. - An area mid-jejunum was tattooed. - No specimens collected. Recommendation: - Patient has a contact number available for emergencies. The signs and symptoms of potential delayed complications were discussed with the patient. Return to normal activities tomorrow. Written discharge instructions were provided to the patient. - Resume previous diet. - Resume Eliquis (apixaban) at prior dose tomorrow. Refer to primary physician for further adjustment of therapy. - Recommend acid suppression medication. - Check hemogram with white blood cell count and platelets in 4 weeks. - Return to GI clinic in [facility] (address [address], [address], [place], [address]) in 4 -- 6 weeks. Please call GI clinic @ [phone] for apppointment date and time. - Return to primary care physician. Mainor Corral MD Mainor Corral MD 07/29/2020 12:59:47 PM Electronically signed by Mainor Corral MD Number of Addenda: 0 Note Initiated On: 07/29/2020 11:50 AM Estimated Blood Loss: Estimated blood loss: none.
[2020-07-29 13:07] VITALS: BP 140/73
== END 2020-07-29 13:09 | disposition home or self-care (01) ==
LOC: M OPP 11:05
PROVIDERS: ATTEND Internal Medicine Gastroenterology
DX: K29.70 Gastritis, unspecified, without bleeding (principal); K55.21 Angiodysplasia of colon with hemorrhage; K31.811 Angiodysplasia of stomach and duodenum with bleeding; D50.9 Iron deficiency anemia, unspecified; Z79.899 Other long term (current) drug therapy; Z88.5 Allergy status to narcotic agent; Z91.030 Bee allergy status; Z86.711 Personal history of pulmonary embolism; F17.210 Nicotine dependence, cigarettes, uncomplicated
CPT/HCPCS: 44365; 44799; J3010

== ENCOUNTER → 2020-10-07 | Outpatient (REF) | payer MEDICARE ==
[~2020-10-07] MED LIST changes: -NS 1,000 ML IV ONE
[2020-10-07 18:40] LABS: PERCENT SATURATION 47.5 % (19.7-50.0)
[2020-10-08 17:32] LABS: URIC ACID 7.8 MG/DL (3.5-7.2)
== END ==
LOC: M LAB REF 16:58
PROVIDERS: ATTEND Internal Medicine Nephrology
DX: D50.9 Iron deficiency anemia, unspecified (principal); E79.0 Hyperuricemia without signs of inflammatory arthritis and tophaceous disease

== ENCOUNTER → 2020-10-18 | Outpatient (REF) | payer MEDICARE ==
[2020-10-18 17:02] LABS: PERCENT SATURATION 29.1 % (19.7-50.0); URIC ACID 10.3 MG/DL (3.5-7.2)
== END ==
LOC: M LAB REF 16:13
PROVIDERS: ATTEND Internal Medicine
DX: D50.9 Iron deficiency anemia, unspecified (principal); M10.072 Idiopathic gout, left ankle and foot

== ENCOUNTER → 2020-10-30 | Outpatient (REF) | payer MEDICARE | LOC: M LAB REF 11:11 | PROVIDERS: ATTEND Internal Medicine | DX: R94.5 Abnormal results of liver function studies (principal) ==

== ENCOUNTER → 2020-11-04 | Outpatient (CLI) | payer MEDICARE ==
--- NOTE | 2020-11-04 11:12 | REP ---
INDICATION: LUNG SCREENING. COMPARISON: CT angio 02/10/2016, portable chest 12/25/2019 TECHNIQUE: Low-dose screening protocol performed with only lung windows presented per protocol. FINDINGS: There are multiple nodules in the right middle lobe medial segment. The largest is 7 mm on image 64 with 5 mm nodule on image 63 and another 5 mm nodule on image 58. All of these are present on the previous study of 2016 in of the same or a mm larger. They are not calcified. The right upper lobe and lateral segment of the right middle lobe. Is a 5 mm nodule on image 57 in the lateral basal segment of the right lower lobe. This is not definitely identified on the previous study. Remainder of the right lower lobe shows only minimal dependent atelectatic changes deep sulcus. The left lung shows a 4.8 mm nodule it is longer than tall and without calcification within. It is within the upper lobe peripherally on image 48. A 4.5 mm nodule is seen anteriorly in the right upper lobe on image 50. Semi solid nodule lateral segment left lower lobe mid axillary line on image 86 noted and all these are seen on the previous study. No effusion or pneumothorax. Cylindrical bronchiectatic change noted. IMPRESSION: 1. Lung rads category 2 benign. Benign findings. Multiple noncalcified solid nodules noted similar to the previous study 5 years ago. Recommend follow-up annual screening low-dose lung CT for patients with elevated risk for malignancy. <Electronically signed by Jhonatan Foster > 11/04/20 [id number]
== END ==
LOC: M RAD 08:17
PROVIDERS: ATTEND Internal Medicine
DX: Z12.2 Encounter for screening for malignant neoplasm of respiratory organs (principal); F17.210 Nicotine dependence, cigarettes, uncomplicated

== ENCOUNTER → 2020-11-19 | Outpatient (REF) | payer MEDICARE | LOC: M LAB REF 12:20 | PROVIDERS: ATTEND Internal Medicine | DX: M10.072 Idiopathic gout, left ankle and foot (principal) ==

== ENCOUNTER → 2021-01-01 | Outpatient (REF) | payer MEDICARE | LOC: M LAB REF 11:23 | PROVIDERS: ATTEND Internal Medicine | DX: M10.072 Idiopathic gout, left ankle and foot (principal) ==

== ENCOUNTER → 2021-01-20 | Outpatient (CLI) | payer MEDICARE ==
--- NOTE | 2021-01-20 10:58 | REP ---
INDICATION: ABNORMAL RESULTS OF LIVER FUNCTION STUDIES. COMPARISON: 03/09/2018. TECHNIQUE: Real-time sonographic evaluation of right upper quadrant performed. FINDINGS: The gallbladder demonstrates no evidence of intraluminal sludge or calculi, wall thickening or pericholecystic fluid. There is no intrahepatic or extrahepatic biliary dilatation, common bile duct measures 5 mm in maximum diameter. Liver demonstrates somewhat increased echotexture diffusely suggesting fibrofatty infiltration. No focal mass is seen. The visualized pancreas is grossly unremarkable, not optimally seen due to overlying bowel gas. The right kidney demonstrates no hydronephrosis, with a normal size of 11.1 cm in length. No free fluid is seen. IMPRESSION: Diffuse fibrofatty infiltration of the liver. <Electronically signed by Wagner Childers > 01/20/21 1052
== END ==
LOC: M RAD 08:44
PROVIDERS: ATTEND Internal Medicine
DX: R94.5 Abnormal results of liver function studies (principal)

== ENCOUNTER → 2021-02-11 | Outpatient (REF) | payer MEDICARE ==
[2021-02-11 19:12] LABS: TOTAL PROTEIN 7.8 GM/DL (6.4-8.2)
[2021-02-12 13:56] LABS: ALBUMIN 4.43 GM/DL (3.29-5.55); ALBUMIN % 56.8 % (55.8-66.1); ALPHA-1-GLOBULINS 0.39 GM/DL (0.17-0.41); ALPHA-2-GLOBULINS 0.93 GM/DL (0.42-0.99); ALPHA-2-GLOBULINS % 11.9 % (7.1-11.8); BETA-1-GLOBULINS 0.48 GM/DL (0.28-0.60); BETA-1-GLOBULINS % 6.2 % (4.7-7.2); BETA-2-GLOBULINS 0.41 GM/DL (0.19-0.55); BETA-2-GLOBULINS % 5.2 % (3.2-6.5); GAMMA GLOBULIN % 14.9 % (11.1-18.8); GAMMA GLOBULINS 1.16 GM/DL (0.65-1.58)
[2021-02-13 17:13] LABS: FREE KAPPA LIGHT CHAINS SERUM 30.7 mg/L (3.3-19.4); FREE LAMBDA LIGHT CHAINS SERUM 38.2 mg/L (5.7-26.3); KAPPA/LAMBDA RATIO SERUM 0.8 (0.26-1.65)
== END ==
LOC: M LAB REF 17:26
PROVIDERS: ATTEND Internal Medicine Nephrology
DX: E83.52 Hypercalcemia (principal); R80.9 Proteinuria, unspecified

== ENCOUNTER → 2021-03-03 | Outpatient (CLI) | payer MEDICARE ==
[~2021-03-03] MED LIST changes: +OMEP40CA4 PO; -OMEP40CA97 PO
--- NOTE | 2021-03-03 13:28 | REP ---
INDICATION: PAIN. COMPARISON: 10/05/2012 TECHNIQUE: Four views FINDINGS: The distal diaphysis of the 3rd and 4th metatarsals is fractured. Chronic degenerative changes are again seen throughout the right foot increased from the prior exam. Advanced chronic changes are seen involving the subtalar joints. Bony sclerosis and subtalar joint space narrowing has developed. There is a plantar calcaneal heel spur status quo. There is evidence of a lucency involving 1 of the bases of the metatarsals but this is seen only on the lateral view. IMPRESSION: 1. Metatarsal fractures as described above. 2. Other findings as described above. Consider foot CT. <Electronically signed by George Wilkinson > 03/03/21 [id number]
== END ==
LOC: M WUC 11:39
PROVIDERS: ATTEND Physician Assistant
DX: M79.671 Pain in right foot (principal)

== ENCOUNTER → 2021-03-24 | Outpatient (CLI) | payer MEDICARE ==
--- NOTE | 2021-03-24 12:20 | REP ---
INDICATION: LT KNEE PAIN AND SWELLING, BAKERS CYST. COMPARISON: None. TECHNIQUE: Soft tissue sonography left popliteal fossa. FINDINGS: Scanning of the left posterior popliteal fossa demonstrates a hypoechoic complex fluid collection with some adjacent soft tissue edema. The collection measures 15.1 x 2.6 x 4.7 cm. IMPRESSION: Complex elongate fluid collection in the popliteal fossa, dissecting Reilly's cyst versus hematoma. <Electronically signed by Devin Gna > 03/24/21 [id number]
--- NOTE | 2021-03-24 12:20 | REP ---
INDICATION: LT KNEE PAIN AND SWELLING, BAKERS CYST. COMPARISON: Comparison study December 14, 2018.. TECHNIQUE: Left {lower extremity duplex venous scanning is performed from the groin to the ankle level. FINDINGS: The deep veins are anechoic and fully compressible from the groin to the popliteal fossa in the left lower extremity. Color flow imaging is homogeneous. Spectral Doppler interrogation demonstrates intact respiratory variation in flow and normal manual augmentation of flow. There is no evidence of deep vein thrombosis above the knee. There is no evidence of DVT in the visualized calf veins. Doppler interrogation of the contralateral common femoral vein shows normal symmetric respiratory phasicity. IMPRESSION: No evidence of DVT in the left lower extremity femoropopliteal veins. No DVT in the visible portions of the calf veins. <Electronically signed by Devin Gan > 03/24/21 1030
== END ==
LOC: M RAD 11:22
PROVIDERS: ATTEND Physician Assistant
DX: M25.562 Pain in left knee (principal); M79.662 Pain in left lower leg

== ENCOUNTER → 2021-05-08 | Outpatient (REF) | payer MEDICARE ==
[2021-05-08 11:23] LABS: PERCENT SATURATION 39.8 % (19.7-50.0)
== END ==
LOC: M LAB REF 10:23
PROVIDERS: ATTEND Internal Medicine
DX: D50.9 Iron deficiency anemia, unspecified (principal)

== ENCOUNTER → 2021-08-12 | Outpatient (REF) | payer MEDICARE ==
[~2021-08-12] MED LIST changes: +OMEP-173 PO; -OMEP-218 PO
[2021-08-12 17:23] LABS: BACTERIA, URINE AUTO NEGATIVE (NEGATIVE); MUCUS, URINE SMALL (NEGATIVE); RBC, URINE AUTO 2 /HPF (0-3); SQUAMOUS EPITHELIAL CELL UR AU 0 /HPF (0-6); WBC, URINE AUTO 2 /HPF (0-3)
== END ==
LOC: M LAB REF 16:52
PROVIDERS: ATTEND Internal Medicine
DX: R31.9 Hematuria, unspecified (principal)

== ENCOUNTER → 2021-08-13 | Outpatient (CLI) | payer MEDICARE ==
[~2021-08-13] MED LIST changes: +GASTROGRAFIN SOLUTION 30ML (Q9963) ONE; +ISOVUE-370 76% 100ML VIAL ONE
== END ==
LOC: M PLAIMG 12:34
PROVIDERS: ATTEND Internal Medicine
DX: R10.13 Epigastric pain (principal); K86.2 Cyst of pancreas
CPT/HCPCS: 74178; Q9963; Q9967

== ENCOUNTER → 2021-08-18 | Outpatient (REF) | payer MEDICARE ==
[~2021-08-18] MED LIST changes: -GASTROGRAFIN SOLUTION 30ML (Q9963) ONE; -ISOVUE-370 76% 100ML VIAL ONE; -OMEP-173 PO; +OMEP-218 PO
[2021-08-18 13:58] LABS: TOTAL PROTEIN,RANDOM URINE 160.6 MG/DL (0.0-12.0)
== END ==
LOC: M LAB REF 13:07
PROVIDERS: ATTEND Internal Medicine Nephrology
DX: R80.9 Proteinuria, unspecified (principal); I10 Essential (primary) hypertension; E87.1 Hypo-osmolality and hyponatremia

== ENCOUNTER → 2021-11-11 | Outpatient (REF) | payer MEDICARE ==
[~2021-11-11] MED LIST changes: +OMEP-173 PO; -OMEP-218 PO
[2021-11-11 13:35] LABS: AMYLASE 67 U/L (25-115); LIPASE 204 U/L (73-393)
== END ==
LOC: M LAB REF 12:38
PROVIDERS: ATTEND Internal Medicine
DX: R10.13 Epigastric pain (principal)

== ENCOUNTER → 2021-11-26 | Outpatient (CLI) | payer MEDICARE ==
[~2021-11-26] MED LIST changes: +E-Z-GAS II EFFERVESCENT PACKET (SODIUM BICARB./CITRIC ACID/SIMETHICONE) As Ordered ONE; +E-Z-HD 98% w/w 340GM SUSP BTL As Ordered ONE; +E-Z-PAQUE 96% w/w SUSP 176GM BTL As Ordered ONE
== END ==
LOC: M RAD 08:52
PROVIDERS: ATTEND Internal Medicine
DX: Z12.2 Encounter for screening for malignant neoplasm of respiratory organs (principal); R10.13 Epigastric pain; F17.210 Nicotine dependence, cigarettes, uncomplicated; R91.8 Other nonspecific abnormal finding of lung field

== ENCOUNTER → 2022-03-17 | Outpatient (CLI) | payer MEDICARE ==
[~2022-03-17] MED LIST changes: -E-Z-GAS II EFFERVESCENT PACKET (SODIUM BICARB./CITRIC ACID/SIMETHICONE) As Ordered ONE; -E-Z-HD 98% w/w 340GM SUSP BTL As Ordered ONE; -E-Z-PAQUE 96% w/w SUSP 176GM BTL As Ordered ONE
[2022-03-17 09:40] LABS: BLOOD UREA NITROGEN 15 MG/DL (7-18); CREATININE FOR GFR 0.97 MG/DL (0.70-1.30); GLOMERULAR FILTRATION RATE > 60.0 (>49)
== END ==
LOC: M LAB 08:53
PROVIDERS: ATTEND Internal Medicine
DX: R91.8 Other nonspecific abnormal finding of lung field (principal)

== ENCOUNTER → 2022-03-18 | Outpatient (CLI) | payer MEDICARE ==
[~2022-03-18] MED LIST changes: +ISOVUE-370 76% 100ML VIAL As Ordered ONE
== END ==
LOC: M RAD 08:24
PROVIDERS: ATTEND Internal Medicine Pulmonary Disease
DX: R91.8 Other nonspecific abnormal finding of lung field (principal); R19.8 Other specified symptoms and signs involving the digestive system and abdomen; J43.9 Emphysema, unspecified; I70.0 Atherosclerosis of aorta
CPT/HCPCS: 71260; Q9967

== ENCOUNTER → 2022-06-29 | Outpatient (REF) | payer MEDICARE ==
[~2022-06-29] MED LIST changes: -ISOVUE-370 76% 100ML VIAL As Ordered ONE
== END ==
LOC: M LAB REF 16:18
PROVIDERS: ATTEND Physician Assistant Medical
DX: M25.562 Pain in left knee (principal); M25.462 Effusion, left knee

== ENCOUNTER → 2022-06-30 | Outpatient (CLI) | payer MEDICARE | LOC: M WUC 09:09 | PROVIDERS: ATTEND Physician Assistant Medical | DX: M25.562 Pain in left knee (principal) ==

== ENCOUNTER → 2022-07-01 | Outpatient (CLI) | payer MEDICARE ==
[~2022-07-01] MED LIST changes: +PROHANCE 279.3MG/ML 15ML VIAL As Ordered ONE; +PROHANCE 279.3MG/ML 5ML VIAL As Ordered ONE
== END ==
LOC: M RAD 14:57
PROVIDERS: ATTEND Internal Medicine
DX: R10.13 Epigastric pain (principal); K86.89 Other specified diseases of pancreas; I77.1 Stricture of artery
CPT/HCPCS: A9576; C8902

== ENCOUNTER → 2022-07-09 | Outpatient (REF) | payer MEDICARE ==
[~2022-07-09] MED LIST changes: +ACET650T61 PO; +CETI-24 PO; +CETI10CA2 PO; +CIPR-249 PO; +EZET10TA21 PO; +GNP250TA9 PO; +LEVO1TAB40 PO; +MAGN400T2 PO; +METR-265 PO; +OMEG12002 PO; +ONDA4TAB6 PO; -PROHANCE 279.3MG/ML 15ML VIAL As Ordered ONE; -PROHANCE 279.3MG/ML 5ML VIAL As Ordered ONE; +REPA140I2 SC; +TRAM50TA2 PO; +VITMTA PO
== END ==
LOC: M LAB REF 12:09
PROVIDERS: ATTEND Internal Medicine
DX: R10.13 Epigastric pain (principal)

== ENCOUNTER 2022-07-11 08:46 | Inpatient (IN) | payer MEDICARE ==
[~2022-07-11] VITALS: Ht 182.9 cm; Wt 88.1 kg
[~2022-07-11 08:46] MED LIST changes: -ACET650T61 PO; -CETI-24 PO; -CETI10CA2 PO; -CIPR-249 PO; -EZET10TA21 PO; -GNP250TA9 PO; -LEVO1TAB40 PO; -MAGN400T2 PO; -METR-265 PO; -OMEG12002 PO; -ONDA4TAB6 PO; -REPA140I2 SC; -TRAM50TA2 PO; -VITMTA PO
[2022-07-11 11:31] VITALS: BP 122/74
[2022-07-11 12:40] LABS: HEMATOCRIT 36.4 % (42.0-52.0); HEMOGLOBIN 12.7 g/dl (13.5-17.5); MEAN CORPUSCULAR HGB CONC 34.9 g/dl (32.0-36.5); MEAN CORPUSCULAR VOLUME 86.1 fl (80.0-96.0); PLATELET COUNT, AUTOMATED 346 10^3/uL (150-450); RED BLOOD COUNT 4.23 10^6/uL (4.30-6.10); WHITE BLOOD COUNT 13.6 10^3/uL (4.0-10.0)
[2022-07-11 13:05] LABS: ATYPICAL LYMPH 3 % (0-5); EOSINOPHILS 1 % (0-3); LYMPHOCYTES 8 % (16-44); MONOCYTES 8 % (0-5); NEUTROPHILS 79 % (28-66)
[2022-07-11 13:07] LABS: PLATELET ESTIMATE NORMAL (NORMAL)
[2022-07-11 13:16] LABS: ALBUMIN 2.8 GM/DL (3.2-5.2); ALT/SGPT 368 U/L (12-78); BILIRUBIN,TOTAL 1.9 MG/DL (0.2-1.0); BLOOD UREA NITROGEN 10 MG/DL (7-18); CALCIUM LEVEL 9.2 MG/DL (8.8-10.2); CARBON DIOXIDE LEVEL 26 MEQ/L (21-32); CHLORIDE LEVEL 98 MEQ/L (98-107); CREATININE FOR GFR 0.86 MG/DL (0.70-1.30); GLOMERULAR FILTRATION RATE > 60.0 (>49); GLUCOSE, FASTING 105 MG/DL (70-100); POTASSIUM SERUM 3.3 MEQ/L (3.5-5.1); SODIUM LEVEL 134 MEQ/L (136-145); TOTAL PROTEIN 6.8 GM/DL (6.4-8.2)
[2022-07-11] MEDS ORDERED: PROHANCE 279.3MG/ML 5ML VIAL As Ordered ONE (13:33)
[2022-07-11] MEDS ORDERED: PROHANCE 279.3MG/ML 15ML VIAL As Ordered ONE (13:34)
[2022-07-11 13:45] LABS: INR 1.11; PROTHROMBIN TIME 14.5 SECONDS (12.5-14.5)
[2022-07-11 13:46] LABS: HEMOGLOBIN A1c 5.5 %
[2022-07-11] MEDS ORDERED: diazePAM 10MG/2ML SYRINGE (J3360 PER 5MG) IV ONE (14:15)
[2022-07-11] MEDS ORDERED: EZET10TA21 PO (14:16)
[2022-07-11] MEDS ORDERED: VITMTA PO (14:16)
[2022-07-11] MEDS ORDERED: GNP250TA9 PO (14:16)
[2022-07-11] MEDS ORDERED: CETI10CA2 PO (14:16)
[2022-07-11] MEDS ORDERED: ONDA4TAB6 PO (14:16)
[2022-07-11] MEDS ORDERED: REPA140I2 SC (14:16)
[2022-07-11] MEDS ORDERED: OMEP40CA4 PO (14:16)
[2022-07-11] MEDS ORDERED: OMEG12002 PO (14:16)
[2022-07-11] MEDS ORDERED: ACET650T61 PO (14:16)
[2022-07-11] MEDS ORDERED: HOME MED LIST COMPLETE! XX SCH (14:20)
[2022-07-11] MEDS ORDERED: ONDANSETRON 4MG ORAL DISINTEGRATING TAB PO PRN (14:30)
[2022-07-11] MEDS ORDERED: POTASSIUM CHLORIDE 10MEQ SR TABLET PO ONE (15:00)
[2022-07-11] MEDS ORDERED: ONDANSETRON 4MG 2ML VIAL IV PRN (15:05)
[2022-07-11] MEDS: PIPERACILLIN/TAZOBACTAM SOD 4.5 GM in D5W MINI-BAG PLUS 50 ML IV SCH ×2 (16:50→22:34)
[2022-07-11] MEDS: LR 1,000 ML IV SCH (16:50)
[2022-07-11 18:01] VITALS: BP 113/56
[2022-07-11 20:00] VITALS: BP 131/72
[2022-07-11] MEDS ORDERED: HEPARIN SOD (PORCINE) 5000UNITS/ML 1ML VIAL/SYRINGE IV ONE (20:00)
[2022-07-11] MEDS: METOPROLOL TART 25 MG TABLET PO SCH (20:28)
[2022-07-11] MEDS ORDERED: HEPARIN DRIP 25,000 UNITS in IV 1 EA IV SCH (21:00)
[2022-07-11] MEDS ORDERED: HEPARIN SOD (PORCINE) 5000UNITS/ML 1ML VIAL/SYRINGE IV PRN (21:00)
[2022-07-12] VITALS (8 sets, daily range): BP systolic 92–137; BP diastolic 46–72
[2022-07-12 02:45] LABS: BASO % 0.3 % (0.0-1.0); EOS # 0.4 10^3/uL (0.0-0.5); HEMATOCRIT 35.2 % (42.0-52.0); LYMPH # 2.6 10^3/uL (1.5-5.0); LYMPH % 22.4 % (24.0-44.0); MEAN CORPUSCULAR HEMOGLOBIN 29.6 pg (27.0-33.0); MEAN CORPUSCULAR HGB CONC 34.1 g/dl (32.0-36.5); MEAN CORPUSCULAR VOLUME 86.9 fl (80.0-96.0); MONO # 1.1 10^3/uL (0.0-0.8); MONO % 9.9 % (2.0-8.0); NEUTROPHILS # 7.4 10^3/uL (1.5-8.5); NEUTROPHILS % 64.1 % (36.0-66.0); PLATELET COUNT, AUTOMATED 315 10^3/uL (150-450); RED BLOOD COUNT 4.05 10^6/uL (4.30-6.10); WHITE BLOOD COUNT 11.5 10^3/uL (4.0-10.0)
[2022-07-12 03:00] LABS: INR 1.16
[2022-07-12 03:02] LABS: PARTIAL THROMBOPLASTIN TIME 103.3 SECONDS (24.8-34.2)
[2022-07-12 03:34] LABS: ALBUMIN 2.6 GM/DL (3.2-5.2); ALT/SGPT 346 U/L (12-78); BILIRUBIN,TOTAL 2.9 MG/DL (0.2-1.0); BLOOD UREA NITROGEN 6 MG/DL (7-18); CALCIUM LEVEL 8.3 MG/DL (8.8-10.2); CARBON DIOXIDE LEVEL 28 MEQ/L (21-32); CHLORIDE LEVEL 101 MEQ/L (98-107); CREATININE FOR GFR 0.67 MG/DL (0.70-1.30); GLOMERULAR FILTRATION RATE > 60.0 (>49); GLUCOSE, FASTING 131 MG/DL (70-100); MAGNESIUM LEVEL 0.7 MG/DL (1.8-2.4); POTASSIUM SERUM 2.9 MEQ/L (3.5-5.1); SODIUM LEVEL 135 MEQ/L (136-145); TOTAL PROTEIN 6.2 GM/DL (6.4-8.2)
[2022-07-12] MEDS: PIPERACILLIN/TAZOBACTAM SOD 4.5 GM in D5W MINI-BAG PLUS 50 ML IV SCH ×4 (04:21→21:40)
[2022-07-12] MEDS: MAG SULF 1GM/100ML (MAG RUN) 1 GM in IV 1 EA IV SCH ×3 (05:38→09:22)
[2022-07-12] MEDS ORDERED: POTASSIUM CHLORIDE 10MEQ SR TABLET PO SCH (08:00)
[2022-07-12] MEDS: METOPROLOL TART 25 MG TABLET PO SCH ×2 (09:00→21:00)
[2022-07-12] MEDS ORDERED: EZETIMIBE 10MG TABLET (ZETIA) PO SCH (09:00)
[2022-07-12] MEDS: MULTIVITAMINS/MINERALS THERAP 1 TAB PO SCH (09:00)
[2022-07-12] MEDS ORDERED: ATORVASTATIN 20 MG TAB PO SCH (09:00)
[2022-07-12] MEDS ORDERED: OMEPRAZOLE 20MG CAP PO SCH (09:00)
[2022-07-12] MEDS ORDERED: MAG SULF 1GM/100ML (MAG RUN) 1 GM in IV 1 EA IV SCH (09:00)
[2022-07-12] MEDS: [UNRECOGNIZED DRUG - REMARK] XX SCH ×3 (09:14→12:00)
[2022-07-12] MEDS: PANTOPRAZOLE 40MG VIAL IV SCH (09:22)
[2022-07-12] MEDS: LR 1,000 ML IV SCH ×2 (09:23→17:28)
[2022-07-12] MEDS: KCL 10MEQ/100ML SWI (KRUN) 10 MEQ in IV 1 EA IV SCH ×4 (09:23→12:19)
[2022-07-12] MEDS ORDERED: ISOVUE-300 61% 50ML VIAL As Ordered ONE (13:06)
[2022-07-12 13:20] LABS: MAGNESIUM LEVEL 1.6 MG/DL (1.8-2.4); POTASSIUM SERUM 3.9 MEQ/L (3.5-5.1)
[2022-07-12] MEDS ORDERED: MIDAZOLAM INJ 2MG/2ML VIAL (J2250 PER 1MG) As Ordered ONE (13:29)
[2022-07-12] MEDS ORDERED: fentaNYL 100 MCG/2 ML INJECTION As Ordered ONE ×2 (13:29→15:41)
[2022-07-12] MEDS ORDERED: LIDOCAINE 2% 100MG/5ML SDV (FOR ANES.) As Ordered ONE (13:29)
[2022-07-12] MEDS ORDERED: ROCURONIUM BROMIDE 50 MG/5 ML VIAL As Ordered ONE (13:29)
[2022-07-12] MEDS ORDERED: propofoL 200 MG/20 ML VIAL As Ordered ONE (13:29)
[2022-07-12] MEDS ORDERED: dexameTHASONE 4 MG/ML 1ML VIAL (J1100 PER 1MG) As Ordered ONE (14:17)
[2022-07-12] MEDS ORDERED: ONDANSETRON 4MG 2ML VIAL As Ordered ONE (14:27)
[2022-07-12] MEDS ORDERED: SUGAMMADEX SODIUM 500 MG/5 ML VIAL (BRIDION) As Ordered ONE (14:29)
[2022-07-12] MEDS ORDERED: PHENYLephrine 500MCG 5ML (100MCG/ML) SYRINGE As Ordered ONE (14:38)
[2022-07-12] MEDS ORDERED: ONDANSETRON 4MG 2ML VIAL IV PRN (16:45)
[2022-07-12] MEDS ORDERED: fentaNYL 100 MCG/2 ML INJECTION IV PRN (16:45)
[2022-07-12] MEDS ORDERED: LR 1,000 ML IV SCH ×2 (16:45→18:30)
[2022-07-13] VITALS (10 sets, daily range): BP systolic 111–140; BP diastolic 58–74
[2022-07-13] MEDS: PIPERACILLIN/TAZOBACTAM SOD 4.5 GM in D5W MINI-BAG PLUS 50 ML IV SCH ×4 (03:44→22:06)
[2022-07-13 05:34] LABS: BASO % 0.3 % (0.0-1.0); HEMATOCRIT 37.2 % (42.0-52.0); HEMOGLOBIN 13.1 g/dl (13.5-17.5); LYMPH # 1.5 10^3/uL (1.5-5.0); LYMPH % 13.3 % (24.0-44.0); MEAN CORPUSCULAR HEMOGLOBIN 30.5 pg (27.0-33.0); MEAN CORPUSCULAR HGB CONC 35.2 g/dl (32.0-36.5); MEAN CORPUSCULAR VOLUME 86.7 fl (80.0-96.0); MONO # 0.8 10^3/uL (0.0-0.8); NEUTROPHILS # 9.2 10^3/uL (1.5-8.5); PLATELET COUNT, AUTOMATED 364 10^3/uL (150-450); RED BLOOD COUNT 4.29 10^6/uL (4.30-6.10); WHITE BLOOD COUNT 11.6 10^3/uL (4.0-10.0)
[2022-07-13 06:10] LABS: ALBUMIN 2.4 GM/DL (3.2-5.2); ALT/SGPT 259 U/L (12-78); BILIRUBIN,TOTAL 1.2 MG/DL (0.2-1.0); BLOOD UREA NITROGEN 9 MG/DL (7-18); CALCIUM LEVEL 8.8 MG/DL (8.8-10.2); CARBON DIOXIDE LEVEL 27 MEQ/L (21-32); CHLORIDE LEVEL 100 MEQ/L (98-107); CREATININE FOR GFR 0.84 MG/DL (0.70-1.30); GLOMERULAR FILTRATION RATE > 60.0 (>49); GLUCOSE, FASTING 159 MG/DL (70-100); MAGNESIUM LEVEL 1.3 MG/DL (1.8-2.4); POTASSIUM SERUM 3.8 MEQ/L (3.5-5.1); SODIUM LEVEL 134 MEQ/L (136-145); TOTAL PROTEIN 7.4 GM/DL (6.4-8.2)
[2022-07-13] MEDS: MULTIVITAMINS/MINERALS THERAP 1 TAB PO SCH (09:06)
[2022-07-13] MEDS: PANTOPRAZOLE 40MG VIAL IV SCH (09:06)
[2022-07-13] MEDS: METOPROLOL TART 25 MG TABLET PO SCH ×2 (09:07→20:42)
[2022-07-13] MEDS: APIXABAN 5 MG TAB (ELIQUIS) PO SCH ×2 (15:07→22:07)
[2022-07-13] MEDS ORDERED: APIXABAN 5 MG TAB (ELIQUIS) PO SCH (17:00)
[2022-07-13] MEDS ORDERED: ACETAMINOPHEN TAB 650MG DOSE (2X325MG) PO ONE (19:40)
[2022-07-14] MEDS: PIPERACILLIN/TAZOBACTAM SOD 4.5 GM in D5W MINI-BAG PLUS 50 ML IV SCH ×4 (03:03→21:26)
[2022-07-14 03:35] VITALS: BP 128/60
[2022-07-14 06:46] LABS: BASO # 0.1 10^3/uL (0.0-0.2); BASO % 0.3 % (0.0-1.0); EOS # 0.1 10^3/uL (0.0-0.5); EOS % 0.5 % (0.0-3.0); HEMATOCRIT 38.8 % (42.0-52.0); HEMOGLOBIN 13.6 g/dl (13.5-17.5); LYMPH # 1.1 10^3/uL (1.5-5.0); LYMPH % 7.6 % (24.0-44.0); MEAN CORPUSCULAR HEMOGLOBIN 30.9 pg (27.0-33.0); MEAN CORPUSCULAR HGB CONC 35.1 g/dl (32.0-36.5); MEAN CORPUSCULAR VOLUME 88.2 fl (80.0-96.0); MONO # 0.3 10^3/uL (0.0-0.8); MONO % 2.1 % (2.0-8.0); NEUTROPHILS % 89.2 % (36.0-66.0); PLATELET COUNT, AUTOMATED 387 10^3/uL (150-450); WHITE BLOOD COUNT 14.6 10^3/uL (4.0-10.0)
[2022-07-14] MEDS ORDERED: MAG SULF 1GM/100ML (MAG RUN) 1 GM in IV 1 EA IV ONE ×2 (07:00→19:30)
[2022-07-14] MEDS ORDERED: LR 1,000 ML IV ONE ×2 (07:45→10:05)
[2022-07-14 07:50] LABS: ALBUMIN 2.6 GM/DL (3.2-5.2); ALT/SGPT 182 U/L (12-78); BILIRUBIN,TOTAL 1.3 MG/DL (0.2-1.0); BLOOD UREA NITROGEN 6 MG/DL (7-18); CALCIUM LEVEL 9.4 MG/DL (8.8-10.2); CARBON DIOXIDE LEVEL 29 MEQ/L (21-32); CHLORIDE LEVEL 97 MEQ/L (98-107); CREATININE FOR GFR 0.88 MG/DL (0.70-1.30); GLOMERULAR FILTRATION RATE > 60.0 (>49); GLUCOSE, FASTING 107 MG/DL (70-100); POTASSIUM SERUM 3.2 MEQ/L (3.5-5.1); SODIUM LEVEL 134 MEQ/L (136-145); TOTAL PROTEIN 7.3 GM/DL (6.4-8.2)
[2022-07-14 08:00] VITALS: BP 114/66
[2022-07-14] MEDS: METOPROLOL TART 25 MG TABLET PO SCH ×2 (09:00→20:07)
[2022-07-14] MEDS: MULTIVITAMINS/MINERALS THERAP 1 TAB PO SCH (09:59)
[2022-07-14] MEDS: APIXABAN 5 MG TAB (ELIQUIS) PO SCH ×2 (09:59→20:06)
[2022-07-14] MEDS: PANTOPRAZOLE 40MG VIAL IV SCH (10:00)
[2022-07-14 10:42] LABS: HEMATOCRIT 36.4 % (42.0-52.0); HEMOGLOBIN 12.5 g/dl (13.5-17.5); MEAN CORPUSCULAR HEMOGLOBIN 29.9 pg (27.0-33.0); MEAN CORPUSCULAR HGB CONC 34.3 g/dl (32.0-36.5); MEAN CORPUSCULAR VOLUME 87.1 fl (80.0-96.0); PLATELET COUNT, AUTOMATED 380 10^3/uL (150-450); RED BLOOD COUNT 4.18 10^6/uL (4.30-6.10); WHITE BLOOD COUNT 16.2 10^3/uL (4.0-10.0)
[2022-07-14 12:00] VITALS: BP 116/65
[2022-07-14] MEDS: LR 1,000 ML IV SCH ×2 (13:45→20:06)
[2022-07-14 16:00] VITALS: BP 132/62
[2022-07-14] MEDS ORDERED: POTASSIUM CHLORIDE 10MEQ SR TABLET PO ONE (19:30)
[2022-07-14 20:01] VITALS: BP 118/65
[2022-07-14] MEDS: DOXYCYCLINE HYCLATE 100MG TABLET PO SCH (20:06)
[2022-07-15 00:21] VITALS: BP 111/52
[2022-07-15] MEDS: PIPERACILLIN/TAZOBACTAM SOD 4.5 GM in D5W MINI-BAG PLUS 50 ML IV SCH ×2 (03:04→10:00)
[2022-07-15 04:26] VITALS: BP 106/52
[2022-07-15 05:58] LABS: BASO # 0.1 10^3/uL (0.0-0.2); BASO % 0.7 % (0.0-1.0); EOS # 0.2 10^3/uL (0.0-0.5); EOS % 1.9 % (0.0-3.0); HEMATOCRIT 35.7 % (42.0-52.0); HEMOGLOBIN 12.2 g/dl (13.5-17.5); LYMPH # 2.5 10^3/uL (1.5-5.0); MEAN CORPUSCULAR HGB CONC 34.2 g/dl (32.0-36.5); MEAN CORPUSCULAR VOLUME 87.9 fl (80.0-96.0); MONO # 1.3 10^3/uL (0.0-0.8); MONO % 12.9 % (2.0-8.0); NEUTROPHILS # 6.2 10^3/uL (1.5-8.5); NEUTROPHILS % 60.1 % (36.0-66.0); PLATELET COUNT, AUTOMATED 384 10^3/uL (150-450); RED BLOOD COUNT 4.06 10^6/uL (4.30-6.10); WHITE BLOOD COUNT 10.3 10^3/uL (4.0-10.0)
[2022-07-15] MEDS: LR 1,000 ML IV SCH ×2 (06:23→09:45)
[2022-07-15 06:29] LABS: ALBUMIN 2.4 GM/DL (3.2-5.2); ALT/SGPT 133 U/L (12-78); BILIRUBIN,TOTAL 0.9 MG/DL (0.2-1.0); BLOOD UREA NITROGEN 7 MG/DL (7-18); CALCIUM LEVEL 9.1 MG/DL (8.8-10.2); CARBON DIOXIDE LEVEL 27 MEQ/L (21-32); CHLORIDE LEVEL 102 MEQ/L (98-107); CREATININE FOR GFR 0.78 MG/DL (0.70-1.30); GLOMERULAR FILTRATION RATE > 60.0 (>49); GLUCOSE, FASTING 128 MG/DL (70-100); MAGNESIUM LEVEL 1.3 MG/DL (1.8-2.4); POTASSIUM SERUM 3.4 MEQ/L (3.5-5.1); SODIUM LEVEL 137 MEQ/L (136-145); TOTAL PROTEIN 6.8 GM/DL (6.4-8.2)
[2022-07-15] MEDS ORDERED: MAGNESIUM SULFATE IN WATER 2 GM in IV 1 EA IV STA ×2 (06:31)
[2022-07-15] MEDS ORDERED: POTASSIUM CHLORIDE 10MEQ SR TABLET PO ONE (07:00)
[2022-07-15 08:20] VITALS: BP 102/59
[2022-07-15 08:23] VITALS: BP 102/59
[2022-07-15] MEDS: METOPROLOL TART 25 MG TABLET PO SCH (08:23)
[2022-07-15] MEDS: MAG SULF 1GM/100ML (MAG RUN) 1 GM in IV 1 EA IV SCH ×2 (08:24→09:30)
[2022-07-15] MEDS: PANTOPRAZOLE 40MG VIAL IV SCH (08:24)
[2022-07-15] MEDS: APIXABAN 5 MG TAB (ELIQUIS) PO SCH (08:24)
[2022-07-15] MEDS: MULTIVITAMINS/MINERALS THERAP 1 TAB PO SCH (08:25)
[2022-07-15] MEDS: DOXYCYCLINE HYCLATE 100MG TABLET PO SCH (08:25)
[2022-07-15 12:05] LABS: BLOOD UREA NITROGEN 10 MG/DL (7-18); CARBON DIOXIDE LEVEL 25 MEQ/L (21-32); CHLORIDE LEVEL 102 MEQ/L (98-107); CREATININE FOR GFR 0.73 MG/DL (0.70-1.30); GLOMERULAR FILTRATION RATE > 60.0 (>49); GLUCOSE, FASTING 183 MG/DL (70-100); POTASSIUM SERUM 3.7 MEQ/L (3.5-5.1); SODIUM LEVEL 135 MEQ/L (136-145)
[2022-07-15 12:30] VITALS: BP 119/56
[2022-07-15] MEDS ORDERED: METR-265 PO (12:31)
[2022-07-15] MEDS ORDERED: CIPR-249 PO (12:31)
== END 2022-07-15 14:35 | disposition home or self-care (01) | DRG 435 ==
LOC: M PCU 10:33
PROVIDERS: ADMIT Student in an Organized Health Care Education/Training Program; ATTEND Student in an Organized Health Care Education/Training Program
PROC: 0F7D8DZ Dilation of Pancreatic Duct with Intraluminal Device, Via Natural or Artificial Opening Endoscopic (ICD-10-PCS; 2022-07-12)
PROC: 0F778DZ Dilation of Common Hepatic Duct with Intraluminal Device, Via Natural or Artificial Opening Endoscopic (ICD-10-PCS; 2022-07-12)
PROC: BF141ZZ Fluoroscopy of Gallbladder, Bile Ducts and Pancreatic Ducts using Low Osmolar Contrast (ICD-10-PCS; principal; 2022-07-12 14:30)
DX: C25.0 Malignant neoplasm of head of pancreas (principal); K83.1 Obstruction of bile duct; R17 Unspecified jaundice; D68.61 Antiphospholipid syndrome; K82.0 Obstruction of gallbladder; I10 Essential (primary) hypertension; I25.10 Atherosclerotic heart disease of native coronary artery without angina pectoris; E78.5 Hyperlipidemia, unspecified; Z95.1 Presence of aortocoronary bypass graft; F17.200 Nicotine dependence, unspecified, uncomplicated; K21.9 Gastro-esophageal reflux disease without esophagitis; Z91.030 Bee allergy status; Z88.5 Allergy status to narcotic agent; Z79.899 Other long term (current) drug therapy; Z79.82 Long term (current) use of aspirin; Z79.01 Long term (current) use of anticoagulants; Z86.718 Personal history of other venous thrombosis and embolism; Z86.711 Personal history of pulmonary embolism

== ENCOUNTER 2022-07-21 18:02 | Inpatient (IN) | payer MEDICARE ==
[~2022-07-21] VITALS: Ht 180.3 cm; Wt 85.3 kg
[~2022-07-21 18:02] MED LIST changes: -CETI-24 PO; -TRAM50TA2 PO
[2022-07-21] MEDS ORDERED: PIPERACILLIN/TAZOBACTAM SOD 4.5 GM in D5W MINI-BAG PLUS 50 ML IV ONE (18:55)
[2022-07-21 19:39] LABS: BASO # 0.1 10^3/uL (0.0-0.2); BASO % 0.6 % (0.0-1.0); EOS # 0.3 10^3/uL (0.0-0.5); EOS % 1.7 % (0.0-3.0); HEMATOCRIT 32.3 % (42.0-52.0); HEMOGLOBIN 11.4 g/dl (13.5-17.5); LYMPH % 17.3 % (24.0-44.0); MEAN CORPUSCULAR HEMOGLOBIN 30.6 pg (27.0-33.0); MEAN CORPUSCULAR HGB CONC 35.3 g/dl (32.0-36.5); MEAN CORPUSCULAR VOLUME 86.8 fl (80.0-96.0); MONO # 1.5 10^3/uL (0.0-0.8); MONO % 8.9 % (2.0-8.0); NEUTROPHILS # 12.3 10^3/uL (1.5-8.5); NEUTROPHILS % 70.9 % (36.0-66.0); PLATELET COUNT, AUTOMATED 470 10^3/uL (150-450); RED BLOOD COUNT 3.72 10^6/uL (4.30-6.10); WHITE BLOOD COUNT 17.3 10^3/uL (4.0-10.0)
[2022-07-21 20:07] LABS: RSV AMPLIFICATION NEGATIVE (NEGATIVE)
[2022-07-21 20:21] LABS: ALBUMIN 2.6 GM/DL (3.2-5.2); ALT/SGPT 253 U/L (12-78); BILIRUBIN,DIRECT 6.8 MG/DL (0.0-0.2); BILIRUBIN,TOTAL 8.1 MG/DL (0.2-1.0); BLOOD UREA NITROGEN 19 MG/DL (7-18); CALCIUM LEVEL 9.5 MG/DL (8.8-10.2); CARBON DIOXIDE LEVEL 25 MEQ/L (21-32); CHLORIDE LEVEL 96 MEQ/L (98-107); CREATININE FOR GFR 1.07 MG/DL (0.70-1.30); GLOMERULAR FILTRATION RATE > 60.0 (>49); GLUCOSE, FASTING 91 MG/DL (70-100); POTASSIUM SERUM 4.2 MEQ/L (3.5-5.1); SODIUM LEVEL 132 MEQ/L (136-145); TOTAL PROTEIN 6.5 GM/DL (6.4-8.2)
[2022-07-21] MEDS ORDERED: HEPARIN SOD (PORCINE) 5000UNITS/ML 1ML VIAL/SYRINGE IV PRN (20:50)
[2022-07-21] MEDS ORDERED: ACETAMINOPHEN TAB 650MG DOSE (2X325MG) PO PRN (20:50)
[2022-07-21] MEDS ORDERED: ONDANSETRON 4MG 2ML VIAL IV PRN (20:50)
[2022-07-21] MEDS ORDERED: HYDROMORPHONE HCL 0.5 MG/ 0.5 ML SYRINGE (J1170 PER 1) IV PRN ×2 (20:50)
[2022-07-21 21:50] LABS: INR 1.21; PROTHROMBIN TIME 15.6 SECONDS (12.5-14.5)
[2022-07-21 21:51] LABS: PARTIAL THROMBOPLASTIN TIME 33.5 SECONDS (24.8-34.2)
[2022-07-21] MEDS: LR 1,000 ML IV SCH (22:30)
[2022-07-21] MEDS: HEPARIN DRIP 25,000 UNITS in IV 1 EA IV SCH (22:31)
[2022-07-21] MEDS ORDERED: TRAM50TA2 PO (23:06)
[2022-07-21] MEDS ORDERED: CETI-24 PO (23:06)
[2022-07-21] MEDS ORDERED: HOME MED LIST COMPLETE! XX SCH (23:10)
[2022-07-22] MEDS: PIPERACILLIN/TAZOBACTAM SOD 3.375 GM in D5W MINI-BAG PLUS 50 ML IV SCH ×4 (00:43→20:31)
[2022-07-22 04:00] VITALS: BP 99/54
[2022-07-22 04:15] LABS: HEMATOCRIT 32.3 % (42.0-52.0); HEMOGLOBIN 11.3 g/dl (13.5-17.5); MEAN CORPUSCULAR HEMOGLOBIN 29.8 pg (27.0-33.0); MEAN CORPUSCULAR VOLUME 85.2 fl (80.0-96.0); PLATELET COUNT, AUTOMATED 412 10^3/uL (150-450); RED BLOOD COUNT 3.79 10^6/uL (4.30-6.10); WHITE BLOOD COUNT 15.5 10^3/uL (4.0-10.0)
[2022-07-22 05:36] LABS: ALBUMIN 2.2 GM/DL (3.2-5.2); ALT/SGPT 230 U/L (12-78); BLOOD UREA NITROGEN 20 MG/DL (7-18); CALCIUM LEVEL 9.3 MG/DL (8.8-10.2); CARBON DIOXIDE LEVEL 26 MEQ/L (21-32); CHLORIDE LEVEL 98 MEQ/L (98-107); CREATININE FOR GFR 1.23 MG/DL (0.70-1.30); GLOMERULAR FILTRATION RATE > 60.0 (>49); GLUCOSE, FASTING 102 MG/DL (70-100); MAGNESIUM LEVEL 0.8 MG/DL (1.8-2.4); SODIUM LEVEL 132 MEQ/L (136-145); TOTAL PROTEIN 6.7 GM/DL (6.4-8.2)
[2022-07-22] MEDS: MAG SULF 1GM/100ML (MAG RUN) 1 GM in IV 1 EA IV SCH ×3 (06:07→08:13)
[2022-07-22] MEDS ORDERED: MAG SULF 1GM/100ML (MAG RUN) 1 GM in IV 1 EA IV ONE (06:20)
[2022-07-22 07:48] VITALS: BP 100/57
[2022-07-22] MEDS: PANTOPRAZOLE 40MG VIAL IV SCH (08:13)
[2022-07-22] MEDS: LR 1,000 ML IV SCH ×2 (09:15→16:39)
[2022-07-22 11:48] VITALS: BP 114/64
[2022-07-22 16:00] VITALS: BP 120/66
[2022-07-22] MEDS: HEPARIN DRIP 25,000 UNITS in IV 1 EA IV SCH (16:42)
[2022-07-22 18:35] LABS: INR 1.16; PROTHROMBIN TIME 15.1 SECONDS (12.5-14.5)
[2022-07-22 18:37] LABS: PARTIAL THROMBOPLASTIN TIME 74.2 SECONDS (24.8-34.2)
[2022-07-22 20:00] VITALS: BP 128/61
[2022-07-23] MEDS: PIPERACILLIN/TAZOBACTAM SOD 3.375 GM in D5W MINI-BAG PLUS 50 ML IV SCH ×4 (00:50→21:34)
[2022-07-23] MEDS: LR 1,000 ML IV SCH ×4 (00:50→21:34)
[2022-07-23 01:09] LABS: INR 1.2; PROTHROMBIN TIME 15.4 SECONDS (12.5-14.5)
[2022-07-23 01:11] LABS: PARTIAL THROMBOPLASTIN TIME 69.2 SECONDS (24.8-34.2)
[2022-07-23 04:00] VITALS: BP 136/66
[2022-07-23 07:35] LABS: BASO # 0.1 10^3/uL (0.0-0.2); BASO % 0.5 % (0.0-1.0); EOS # 0.3 10^3/uL (0.0-0.5); EOS % 1.7 % (0.0-3.0); HEMATOCRIT 30.7 % (42.0-52.0); HEMOGLOBIN 11.1 g/dl (13.5-17.5); LYMPH # 3.3 10^3/uL (1.5-5.0); LYMPH % 17.3 % (24.0-44.0); MEAN CORPUSCULAR HEMOGLOBIN 30.4 pg (27.0-33.0); MEAN CORPUSCULAR HGB CONC 36.2 g/dl (32.0-36.5); MEAN CORPUSCULAR VOLUME 84.1 fl (80.0-96.0); MONO % 8.6 % (2.0-8.0); NEUTROPHILS # 13.4 10^3/uL (1.5-8.5); NEUTROPHILS % 71.3 % (36.0-66.0); PLATELET COUNT, AUTOMATED 380 10^3/uL (150-450); RED BLOOD COUNT 3.65 10^6/uL (4.30-6.10); WHITE BLOOD COUNT 18.9 10^3/uL (4.0-10.0)
[2022-07-23 07:57] LABS: BLOOD UREA NITROGEN 11 MG/DL (7-18); CARBON DIOXIDE LEVEL 26 MEQ/L (21-32); CHLORIDE LEVEL 100 MEQ/L (98-107); GLOMERULAR FILTRATION RATE > 60.0 (>49); GLUCOSE, FASTING 123 MG/DL (70-100); MAGNESIUM LEVEL 1.2 MG/DL (1.8-2.4); POTASSIUM SERUM 3.5 MEQ/L (3.5-5.1); SODIUM LEVEL 133 MEQ/L (136-145)
[2022-07-23 08:00] VITALS: BP 121/69
[2022-07-23 08:06] LABS: MONO # 1.6 10^3/uL (0.0-0.8)
[2022-07-23] MEDS: PANTOPRAZOLE 40MG VIAL IV SCH (08:29)
[2022-07-23] MEDS ORDERED: ISOVUE-300 61% 50ML VIAL As Ordered ONE (15:49)
[2022-07-23] MEDS ORDERED: fentaNYL 100 MCG/2 ML INJECTION As Ordered ONE ×2 (17:44→19:00)
[2022-07-23] MEDS ORDERED: MIDAZOLAM INJ 2MG/2ML VIAL (J2250 PER 1MG) As Ordered ONE (17:44)
[2022-07-23] MEDS ORDERED: SUCCINYLCHOLINE 100 MG/5 ML SYRINGE (J0330) As Ordered ONE (17:46)
[2022-07-23] MEDS ORDERED: LIDOCAINE 2% 100MG/5ML SDV (FOR ANES.) As Ordered ONE (17:46)
[2022-07-23] MEDS ORDERED: ROCURONIUM BROMIDE 50 MG/5 ML VIAL As Ordered ONE (17:47)
[2022-07-23] MEDS ORDERED: propofoL 200 MG/20 ML VIAL As Ordered ONE (17:47)
[2022-07-23] MEDS ORDERED: ONDANSETRON 4MG 2ML VIAL As Ordered ONE (18:35)
[2022-07-23] MEDS ORDERED: dexameTHASONE 4 MG/ML 1ML VIAL (J1100 PER 1MG) As Ordered ONE (18:35)
[2022-07-23] MEDS ORDERED: PHENYLephrine 500MCG 5ML (100MCG/ML) SYRINGE As Ordered ONE (18:42)
[2022-07-23] MEDS ORDERED: SUGAMMADEX SODIUM 500 MG/5 ML VIAL (BRIDION) As Ordered ONE (18:49)
[2022-07-23] MEDS ORDERED: oxyCODONE 5MG TAB PO PRN (19:20)
[2022-07-23] MEDS ORDERED: ONDANSETRON 4MG 2ML VIAL IV PRN (19:20)
[2022-07-23] MEDS ORDERED: fentaNYL 100 MCG/2 ML INJECTION IV PRN (19:20)
[2022-07-23] MEDS ORDERED: LR 1,000 ML IV SCH (19:20)
[2022-07-23 21:25] VITALS: BP 162/80
[2022-07-23 22:00] VITALS: BP 157/73
[2022-07-23] MEDS: HEPARIN DRIP 25,000 UNITS in IV 1 EA IV SCH (22:23)
[2022-07-23 23:00] VITALS: BP 158/80
[2022-07-24] VITALS: BP 153/69
[2022-07-24 01:00] VITALS: BP_SYST 123; BP_SYST 125; BP_SYST 136; BP_DIAS 64; BP_DIAS 73; BP_DIAS 75
[2022-07-24 02:00] VITALS: BP 164/70
[2022-07-24] MEDS: PIPERACILLIN/TAZOBACTAM SOD 3.375 GM in D5W MINI-BAG PLUS 50 ML IV SCH (02:50)
[2022-07-24 04:59] LABS: BASO % 0.2 % (0.0-1.0); EOS % 0.1 % (0.0-3.0); HEMATOCRIT 33.6 % (42.0-52.0); LYMPH # 2.1 10^3/uL (1.5-5.0); LYMPH % 15.4 % (24.0-44.0); MEAN CORPUSCULAR HEMOGLOBIN 30.3 pg (27.0-33.0); MEAN CORPUSCULAR HGB CONC 35.7 g/dl (32.0-36.5); MEAN CORPUSCULAR VOLUME 84.8 fl (80.0-96.0); MONO # 0.2 10^3/uL (0.0-0.8); MONO % 1.8 % (2.0-8.0); NEUTROPHILS % 81.9 % (36.0-66.0); PLATELET COUNT, AUTOMATED 429 10^3/uL (150-450); RED BLOOD COUNT 3.96 10^6/uL (4.30-6.10); WHITE BLOOD COUNT 13.4 10^3/uL (4.0-10.0)
[2022-07-24 05:43] LABS: BLOOD UREA NITROGEN 11 MG/DL (7-18); CALCIUM LEVEL 9.2 MG/DL (8.8-10.2); CARBON DIOXIDE LEVEL 28 MEQ/L (21-32); CHLORIDE LEVEL 99 MEQ/L (98-107); CREATININE FOR GFR 0.95 MG/DL (0.70-1.30); GLOMERULAR FILTRATION RATE > 60.0 (>49); GLUCOSE, FASTING 170 MG/DL (70-100); MAGNESIUM LEVEL 1.1 MG/DL (1.8-2.4); POTASSIUM SERUM 3.7 MEQ/L (3.5-5.1); SODIUM LEVEL 135 MEQ/L (136-145)
[2022-07-24] MEDS ORDERED: metroNIDAZOLE (FLAGYL) 500MG TABLET PO SCH (06:00)
[2022-07-24] MEDS ORDERED: LevoFLOXacin 750 MG TABLET PO SCH (07:30)
[2022-07-24] MEDS: MAG SULF 1GM/100ML (MAG RUN) 1 GM in IV 1 EA IV SCH ×2 (07:42→08:51)
[2022-07-24] MEDS: PANTOPRAZOLE 40MG VIAL IV SCH (08:01)
[2022-07-24 08:08] LABS: ALBUMIN 1.9 GM/DL (3.2-5.2); ALT/SGPT 212 U/L (12-78); BILIRUBIN,DIRECT 4.1 MG/DL (0.0-0.2); BILIRUBIN,TOTAL 4.7 MG/DL (0.2-1.0); TOTAL PROTEIN 6.9 GM/DL (6.4-8.2)
[2022-07-24 08:18] VITALS: BP 125/69
[2022-07-24] MEDS ORDERED: MAGNESIUM OXIDE 400MG TAB (MAG-OX) PO SCH (09:00)
[2022-07-24] MEDS ORDERED: OMEP40CA4 PO (09:07)
[2022-07-24] MEDS ORDERED: METR-265 PO (09:07)
[2022-07-24] MEDS ORDERED: LEVO1TAB40 PO (09:07)
[2022-07-24] MEDS ORDERED: MAGN400T2 PO (09:07)
[2022-07-24] MEDS ORDERED: PREVNAR-20 VACCINE 0.5ML SYRINGE IM.IMMUN ONE (11:00)
[2022-07-25] MEDS ORDERED: OMEPRAZOLE 20MG CAP PO SCH (09:00)
== END 2022-07-24 13:31 | disposition home or self-care (01) | DRG 919 ==
LOC: M ED 18:02 → M ED INP 20:46 → M PCU 22:20 → OBSVTOIN 07-23 17:59
PROVIDERS: ADMIT Family Medicine; ATTEND Student in an Organized Health Care Education/Training Program
PROC: 0F798DZ Dilation of Common Bile Duct with Intraluminal Device, Via Natural or Artificial Opening Endoscopic (ICD-10-PCS; principal; 2022-07-23 15:30)
DX: T85.520A Displacement of bile duct prosthesis, initial encounter (principal); K83.1 Obstruction of bile duct; C25.9 Malignant neoplasm of pancreas, unspecified; D68.61 Antiphospholipid syndrome; E80.6 Other disorders of bilirubin metabolism; K21.9 Gastro-esophageal reflux disease without esophagitis; R74.01 Elevation of levels of liver transaminase levels; R19.7 Diarrhea, unspecified; F12.90 Cannabis use, unspecified, uncomplicated; Z79.01 Long term (current) use of anticoagulants; Z95.1 Presence of aortocoronary bypass graft; I10 Essential (primary) hypertension; R63.4 Abnormal weight loss; I25.10 Atherosclerotic heart disease of native coronary artery without angina pectoris; E78.5 Hyperlipidemia, unspecified; E83.42 Hypomagnesemia; D72.829 Elevated white blood cell count, unspecified; Z86.711 Personal history of pulmonary embolism; Z91.030 Bee allergy status; Z88.5 Allergy status to narcotic agent; Z88.8 Allergy status to other drugs, medicaments and biological substances; Z79.899 Other long term (current) drug therapy; Z86.718 Personal history of other venous thrombosis and embolism; Y83.8 Other surgical procedures as the cause of abnormal reaction of the patient, or of later complication, without mention of misadventure at the time of the procedure

== ENCOUNTER → 2022-07-21 | Outpatient (REF) | payer MEDICARE ==
[~2022-07-21] MED LIST changes: +ACET650T61 PO; +CETI-24 PO; +CETI10CA2 PO; +CIPR-249 PO; +EZET10TA21 PO; +GNP250TA9 PO; +METR-265 PO; +OMEG12002 PO; +ONDA4TAB6 PO; +REPA140I2 SC; +TRAM50TA2 PO; +VITMTA PO
== END ==
LOC: M LAB REF 16:19
PROVIDERS: ATTEND Physician Assistant Medical
DX: D37.8 Neoplasm of uncertain behavior of other specified digestive organs (principal)

== ENCOUNTER → 2022-07-29 | Outpatient (REF) | payer MEDICARE ==
[~2022-07-29] MED LIST changes: +CETI-24 PO; +LEVO1TAB40 PO; +MAGN400T2 PO; +TRAM50TA2 PO
== END ==
LOC: M LAB REF 11:10
PROVIDERS: ATTEND Physician Assistant Medical
DX: D37.8 Neoplasm of uncertain behavior of other specified digestive organs (principal)

== ENCOUNTER → 2022-08-17 | Outpatient (CLI) | payer MEDICARE ==
[2022-08-17 09:05] LABS: BASO % 0.3 % (0.0-1.0); EOS # 0.7 10^3/uL (0.0-0.5); EOS % 6.7 % (0.0-3.0); HEMATOCRIT 39.6 % (42.0-52.0); HEMOGLOBIN 12.9 g/dl (13.5-17.5); LYMPH # 3.1 10^3/uL (1.5-5.0); LYMPH % 32.4 % (24.0-44.0); MEAN CORPUSCULAR HEMOGLOBIN 29.3 pg (27.0-33.0); MEAN CORPUSCULAR HGB CONC 32.6 g/dl (32.0-36.5); MONO # 0.8 10^3/uL (0.0-0.8); MONO % 8.3 % (2.0-8.0); NEUTROPHILS % 52.1 % (36.0-66.0); PLATELET COUNT, AUTOMATED 284 10^3/uL (150-450); WHITE BLOOD COUNT 9.6 10^3/uL (4.0-10.0)
[2022-08-17 09:29] LABS: LIPASE 130 U/L (12-53)
[2022-08-17 09:31] LABS: ALBUMIN 3.3 G/DL (3.2-5.2); ALKALINE PHOSPHATASE 213 U/L (46-116); ALT/SGPT 30 U/L (7.0-40); AMYLASE 92 U/L (30-118); AST/SGOT 31 U/L (<34); BILIRUBIN,TOTAL 0.9 MG/DL (0.3-1.2); BLOOD UREA NITROGEN 14 MG/DL (9-23); CALCIUM LEVEL 9.2 MG/DL (8.3-10.6); CARBON DIOXIDE LEVEL 28 MMOL/L (20-31); CHLORIDE LEVEL 104 MMOL/L (98-107); CREATININE FOR GFR 0.71 MG/DL (0.70-1.30); GLOMERULAR FILTRATION RATE > 60.0 (>49); GLUCOSE, FASTING 128 MG/DL (74-106); POTASSIUM SERUM 4.5 MMOL/L (3.5-5.1); SODIUM LEVEL 139 MMOL/L (136-145); TOTAL PROTEIN 7.1 G/DL (5.7-8.2)
== END ==
LOC: M LAB 08:41
DX: K83.1 Obstruction of bile duct (principal)

== ENCOUNTER 2022-09-09 12:39 | Emergency (ER) | payer MEDICARE ==
[~2022-09-09] VITALS: Ht 180.3 cm; Wt 80.5 kg
[2022-09-09 12:40] VITALS: BP 109/69
[2022-09-09] MEDS ORDERED: OXYC-517 (12:52)
[2022-09-09] MEDS ORDERED: OMEP-173 (12:52)
[2022-09-10] MEDS ORDERED: ISOVUE-370 76% 100ML VIAL As Ordered ONE (14:17)
== END 2022-09-09 15:47 | disposition left against medical advice (07) ==
LOC: M ED 12:39
DX: Z53.21 Procedure and treatment not carried out due to patient leaving prior to being seen by health care provider (principal)

== ENCOUNTER → 2022-09-10 | Outpatient (CLI) | payer MEDICARE ==
[~2022-09-10] MED LIST changes: +GASTROGRAFIN SOLUTION 30ML As Ordered ONE; +ISOVUE-370 76% 100ML VIAL As Ordered ONE; +OMEP-173; +OXYC-517
[2022-09-10 14:05] LABS: BASO # 0.1 10^3/uL (0.0-0.2); BASO % 0.4 % (0.0-1.0); EOS # 0.5 10^3/uL (0.0-0.5); EOS % 2.7 % (0.0-3.0); HEMATOCRIT 41.8 % (42.0-52.0); HEMOGLOBIN 13.8 g/dl (13.5-17.5); LYMPH # 3.1 10^3/uL (1.5-5.0); LYMPH % 17.2 % (24.0-44.0); MEAN CORPUSCULAR HEMOGLOBIN 29.5 pg (27.0-33.0); MEAN CORPUSCULAR VOLUME 89.3 fl (80.0-96.0); MONO % 9.7 % (2.0-8.0); NEUTROPHILS # 12.6 10^3/uL (1.5-8.5); NEUTROPHILS % 69.5 % (36.0-66.0); PLATELET COUNT, AUTOMATED 379 10^3/uL (150-450); RED BLOOD COUNT 4.68 10^6/uL (4.30-6.10); WHITE BLOOD COUNT 18.1 10^3/uL (4.0-10.0)
[2022-09-10 14:32] LABS: LIPASE 54 U/L (12-53)
[2022-09-10 14:34] LABS: ALBUMIN 3.8 G/DL (3.2-5.2); ALKALINE PHOSPHATASE 604 U/L (46-116); ALT/SGPT 52 U/L (7.0-40); AMYLASE 57 U/L (30-118); AST/SGOT 71 U/L (<34); BILIRUBIN,TOTAL 1.2 MG/DL (0.3-1.2); BLOOD UREA NITROGEN 17 MG/DL (9-23); CARBON DIOXIDE LEVEL 25 MMOL/L (20-31); CHLORIDE LEVEL 100 MMOL/L (98-107); CREATININE FOR GFR 0.99 MG/DL (0.70-1.30); GLOMERULAR FILTRATION RATE > 60.0 (>49); GLUCOSE, FASTING 153 MG/DL (74-106); POTASSIUM SERUM 4.6 MMOL/L (3.5-5.1); SODIUM LEVEL 134 MMOL/L (136-145); TOTAL PROTEIN 7.7 G/DL (5.7-8.2)
[2022-09-10 14:42] LABS: MONO # 1.8 10^3/uL (0.0-0.8)
== END ==
LOC: M RAD 12:36
PROVIDERS: ATTEND Nurse Practitioner
DX: K83.1 Obstruction of bile duct (principal); I70.0 Atherosclerosis of aorta; I25.10 Atherosclerotic heart disease of native coronary artery without angina pectoris; Z95.1 Presence of aortocoronary bypass graft; Z95.828 Presence of other vascular implants and grafts; N28.1 Cyst of kidney, acquired; K86.2 Cyst of pancreas; I70.1 Atherosclerosis of renal artery; K55.9 Vascular disorder of intestine, unspecified
CPT/HCPCS: 36415; 74178; 80053; 82150; 83690; 85025; Q9963

== ENCOUNTER → 2022-09-17 | Outpatient (CLI) | payer MEDICARE ==
[~2022-09-17] MED LIST changes: +AMOX875T2 PO; -GASTROGRAFIN SOLUTION 30ML As Ordered ONE; -ISOVUE-370 76% 100ML VIAL As Ordered ONE; +METO1TAB87 PO; -OMEP-173; -OXYC-517; +OXYC-517 PO; +URSO300C3
[2022-09-17 10:42] LABS: BASO # 0.1 10^3/uL (0.0-0.2); BASO % 0.3 % (0.0-1.0); EOS % 0.1 % (0.0-3.0); HEMATOCRIT 38.4 % (42.0-52.0); HEMOGLOBIN 12.8 g/dl (13.5-17.5); LYMPH # 1.6 10^3/uL (1.5-5.0); LYMPH % 8.4 % (24.0-44.0); MEAN CORPUSCULAR HEMOGLOBIN 29.6 pg (27.0-33.0); MEAN CORPUSCULAR HGB CONC 33.3 g/dl (32.0-36.5); MEAN CORPUSCULAR VOLUME 88.9 fl (80.0-96.0); MONO # 1.2 10^3/uL (0.0-0.8); MONO % 6.6 % (2.0-8.0); NEUTROPHILS # 15.5 10^3/uL (1.5-8.5); PLATELET COUNT, AUTOMATED 359 10^3/uL (150-450); RED BLOOD COUNT 4.32 10^6/uL (4.30-6.10); WHITE BLOOD COUNT 18.5 10^3/uL (4.0-10.0)
[2022-09-17 11:10] LABS: LIPASE 55 U/L (12-53)
[2022-09-17 11:11] LABS: AMYLASE 46 U/L (30-118)
[2022-09-17 11:12] LABS: ALBUMIN 3.2 G/DL (3.2-5.2); ALKALINE PHOSPHATASE 572 U/L (46-116); ALT/SGPT 67 U/L (7.0-40); AST/SGOT 42 U/L (<34); BILIRUBIN,TOTAL 1.2 MG/DL (0.3-1.2); BLOOD UREA NITROGEN 19 MG/DL (9-23); CARBON DIOXIDE LEVEL 25 MMOL/L (20-31); CHLORIDE LEVEL 97 MMOL/L (98-107); CREATININE FOR GFR 0.84 MG/DL (0.70-1.30); GLOMERULAR FILTRATION RATE > 60.0 (>49); GLUCOSE, FASTING 119 MG/DL (74-106); POTASSIUM SERUM 4.8 MMOL/L (3.5-5.1); SODIUM LEVEL 131 MMOL/L (136-145); TOTAL PROTEIN 7.4 G/DL (5.7-8.2)
== END ==
LOC: M RAD 09:40
DX: K83.1 Obstruction of bile duct (principal); I82.409 Acute embolism and thrombosis of unspecified deep veins of unspecified lower extremity; R09.89 Other specified symptoms and signs involving the circulatory and respiratory systems

== ENCOUNTER → 2022-09-17 | Outpatient (CLI) | payer MEDICARE ==
[~2022-09-17] MED LIST changes: -URSO300C3
== END ==
LOC: M LABSMTC 09:17
PROVIDERS: ATTEND Anesthesiology
DX: Z01.812 Encounter for preprocedural laboratory examination (principal); Z20.822 Contact with and (suspected) exposure to COVID-19

== ENCOUNTER 2022-09-22 13:22 | Day surgery (SDC) | payer MEDICARE ==
[~2022-09-22] VITALS: Ht 177.8 cm; Wt 78.2 kg
[~2022-09-22 13:22] MED LIST changes: +NS 1,000 ML IV ONE
[2022-09-22] MEDS ORDERED: LR 1,000 ML IV SCH ×2 (13:40→17:30)
[2022-09-22] MEDS ORDERED: ACET650T61 PO (13:51)
[2022-09-22] MEDS ORDERED: ISOVUE-300 61% 50ML VIAL As Ordered ONE (14:43)
[2022-09-22] MEDS ORDERED: ROCURONIUM BROMIDE 50MG/5ML VIAL As Ordered ONE (15:42)
[2022-09-22] MEDS ORDERED: METOCLOPRAMIDE INJ 10MG/2ML VIAL As Ordered ONE (15:43)
[2022-09-22] MEDS ORDERED: fentaNYL 100 MCG/2 ML INJECTION As Ordered ONE (15:43)
[2022-09-22] MEDS ORDERED: SUGAMMADEX SODIUM 500 MG/5 ML VIAL (BRIDION) As Ordered ONE (15:43)
[2022-09-22] MEDS ORDERED: ONDANSETRON 4MG 2ML VIAL As Ordered ONE (15:43)
[2022-09-22] MEDS ORDERED: MIDAZOLAM INJ 2MG/2ML VIAL As Ordered ONE (15:43)
[2022-09-22] MEDS ORDERED: LIDOCAINE 2% 100MG/5ML SDV (FOR ANES.) As Ordered ONE (15:43)
[2022-09-22] MEDS ORDERED: propofoL 200 MG/20 ML VIAL As Ordered ONE (15:43)
[2022-09-22] MEDS ORDERED: oxyCODONE 5MG TAB PO PRN (17:30)
[2022-09-22] MEDS ORDERED: ONDANSETRON 4MG 2ML VIAL IV PRN (17:30)
[2022-09-22] MEDS ORDERED: HYDROMORPHONE HCL 0.5 MG/ 0.5 ML SYRINGE IV PRN (17:30)
[2022-09-22] MEDS ORDERED: fentaNYL 100 MCG/2 ML INJECTION IV PRN (17:30)
[2022-09-22 18:05] VITALS: BP 118/65
[2022-09-28] MEDS ORDERED: URSO300C3 (15:02)
== END 2022-09-22 18:25 | disposition home or self-care (01) ==
LOC: M SDC 13:22
PROVIDERS: ATTEND Internal Medicine Gastroenterology
DX: K83.1 Obstruction of bile duct (principal); Z96.89 Presence of other specified functional implants; K82.0 Obstruction of gallbladder; K83.8 Other specified diseases of biliary tract; I25.10 Atherosclerotic heart disease of native coronary artery without angina pectoris; I10 Essential (primary) hypertension; Z87.891 Personal history of nicotine dependence; Z79.01 Long term (current) use of anticoagulants; E78.5 Hyperlipidemia, unspecified; M10.9 Gout, unspecified; Z86.711 Personal history of pulmonary embolism; Z79.899 Other long term (current) drug therapy; Z88.5 Allergy status to narcotic agent; Z91.030 Bee allergy status
CPT/HCPCS: 43276; 74330; C1876; J1100; J2405; Q9967

== ENCOUNTER → 2022-10-01 | Outpatient (CLI) | payer MEDICARE ==
[~2022-10-01] MED LIST changes: -NS 1,000 ML IV ONE; +PROHANCE 279.3MG/ML 15ML VIAL As Ordered ONE; +URSO300C3
== END ==
LOC: M RAD 10:49
PROVIDERS: ATTEND Internal Medicine Medical Oncology
DX: K86.2 Cyst of pancreas (principal)
CPT/HCPCS: 70553; A9576

== ENCOUNTER → 2022-10-08 | Outpatient (CLI) | payer MEDICARE ==
[~2022-10-08] MED LIST changes: +ISOVUE-370 76% 100ML VIAL As Ordered ONE; -PROHANCE 279.3MG/ML 15ML VIAL As Ordered ONE
== END ==
LOC: M RAD 15:29
PROVIDERS: ATTEND Internal Medicine Medical Oncology
DX: C25.9 Malignant neoplasm of pancreas, unspecified (principal)
CPT/HCPCS: 71260; Q9967

== ENCOUNTER 2022-11-17 08:16 | Outpatient (CLI) | payer MEDICARE ==
[~2022-11-17] VITALS: Ht 180.3 cm; Wt 75.9 kg
[~2022-11-17 08:16] MED LIST changes: -ISOVUE-370 76% 100ML VIAL As Ordered ONE; +POTA10CA33; +PROC10TA5 PO
[2022-11-17] MEDS: MAG SULF 1GM/100ML (MAG RUN) X 2 DOSES (2GM TOTAL) IV SCH ×4 (08:32→09:33)
[2022-11-17 08:47] VITALS: BP 105/55
[2022-11-17 10:37] VITALS: BP 132/73
[2022-11-19] MEDS ORDERED: PRED10TA2 (09:51)
== END 2022-11-17 10:40 | disposition home or self-care (01) ==
LOC: M INFU 08:16
PROVIDERS: ATTEND Internal Medicine
DX: E83.42 Hypomagnesemia (principal); Z88.6 Allergy status to analgesic agent; Z91.030 Bee allergy status

== ENCOUNTER 2022-11-24 15:05 | Outpatient (CLI) | payer MEDICARE ==
[~2022-11-24] VITALS: Ht 182.9 cm; Wt 76.0 kg
[~2022-11-24 15:05] MED LIST changes: +PRED10TA2
[2022-11-24] MEDS: MAG SULF 1GM/100ML (MAG RUN) X 2 DOSES (2GM TOTAL) IV SCH ×4 (15:17→16:00)
[2022-11-24 15:22] VITALS: BP 179/82
[2022-11-24 17:17] VITALS: BP 145/78
== END 2022-11-24 17:20 | disposition home or self-care (01) ==
LOC: M INFU 15:05
PROVIDERS: ATTEND Internal Medicine
DX: E83.42 Hypomagnesemia (principal); Z88.6 Allergy status to analgesic agent; Z88.8 Allergy status to other drugs, medicaments and biological substances

== ENCOUNTER → 2022-12-07 | Outpatient (CLI) | payer MEDICARE ==
[~2022-12-07] MED LIST changes: +GASTROGRAFIN SOLUTION 30ML As Ordered ONE; +ISOVUE-370 76% 100ML VIAL As Ordered ONE
== END ==
LOC: M RAD 12:25
PROVIDERS: ATTEND Nurse Practitioner
DX: C25.9 Malignant neoplasm of pancreas, unspecified (principal)
CPT/HCPCS: 71260; 74177; Q9963; Q9967

== ENCOUNTER → 2022-12-10 | Outpatient (CLI) | payer MEDICARE ==
[~2022-12-10] MED LIST changes: -GASTROGRAFIN SOLUTION 30ML As Ordered ONE; -ISOVUE-370 76% 100ML VIAL As Ordered ONE
== END ==
LOC: M WUC 14:23
PROVIDERS: ATTEND Nurse Practitioner Family
DX: R05.9 Cough, unspecified (principal)

== ENCOUNTER → 2023-01-07 | Outpatient (CLI) | payer MEDICARE ==
[~2023-01-07] VITALS: Ht 180.3 cm; Wt 76.7 kg
[~2023-01-07] MED LIST changes: +MIRT1TAB PO; -POTA10CA33; +POTA10CA33 PO; -PRED10TA2; +PRED10TA2 PO; +SENN-186 PO; -URSO300C3; +URSO300C3 PO
[2023-01-07 13:49] VITALS: BP 128/79
== END ==
LOC: M PAL 13:45
PROVIDERS: ATTEND Nurse Practitioner Adult Health
DX: C25.9 Malignant neoplasm of pancreas, unspecified (principal); Z51.5 Encounter for palliative care; R10.13 Epigastric pain; M54.50 Low back pain, unspecified; Z92.21 Personal history of antineoplastic chemotherapy; R63.0 Anorexia; K59.00 Constipation, unspecified; F41.9 Anxiety disorder, unspecified; Z87.891 Personal history of nicotine dependence; Z88.5 Allergy status to narcotic agent; Z91.030 Bee allergy status; Z95.5 Presence of coronary angioplasty implant and graft; Z79.891 Long term (current) use of opiate analgesic; Z79.01 Long term (current) use of anticoagulants; Z79.899 Other long term (current) drug therapy

== ENCOUNTER → 2023-01-25 | Outpatient (CLI) | payer MEDICARE ==
[~2023-01-25] MED LIST changes: +SLOWTAB2 PO
== END ==
LOC: M PLARAD 12:13
PROVIDERS: ATTEND Nurse Practitioner
DX: C25.3 Malignant neoplasm of pancreatic duct (principal); J91.8 Pleural effusion in other conditions classified elsewhere; R93.2 Abnormal findings on diagnostic imaging of liver and biliary tract
CPT/HCPCS: 78815; A9552

== ENCOUNTER → 2023-02-17 | Outpatient (CLI) | payer MEDICARE ==
[~2023-02-17] MED LIST changes: +LIDOCAINE 1% MDV 20ML VIAL As Ordered ONE; +MIDAZOLAM INJ 2MG/2ML VIAL As Ordered ONE; +PROMETHAZINE 25MG/ML 1ML VIAL As Ordered ONE; +ceFAZolin 2 GM/D5W 50 ML IV BAG As Ordered ONE; +diphenhydrAMINE 50MG/ML VIAL As Ordered ONE; +fentaNYL 100 MCG/2 ML INJECTION As Ordered ONE
[2023-02-17 12:45] VITALS: TEMP 97.5
[2023-02-17 17:00] VITALS: BP 128/68; O2SAT 98
== END ==
LOC: M IRPRO 12:32
PROVIDERS: ATTEND Nurse Practitioner
DX: C25.9 Malignant neoplasm of pancreas, unspecified (principal)
CPT/HCPCS: 36561; C1769; C1788; C1894; J0690; J1200; J2250; J2550; J3010

== ENCOUNTER → 2023-03-09 | Outpatient (POV) | payer MEDICARE ==
[~2023-03-09] VITALS: Ht 180.3 cm; Wt 76.3 kg
[~2023-03-09] MED LIST changes: -LIDOCAINE 1% MDV 20ML VIAL As Ordered ONE; -MIDAZOLAM INJ 2MG/2ML VIAL As Ordered ONE; -POTA10CA33 PO; +POTA10CA60 PO; -PROMETHAZINE 25MG/ML 1ML VIAL As Ordered ONE; -ceFAZolin 2 GM/D5W 50 ML IV BAG As Ordered ONE; -diphenhydrAMINE 50MG/ML VIAL As Ordered ONE; -fentaNYL 100 MCG/2 ML INJECTION As Ordered ONE
[2023-03-09 09:20] VITALS: BP 135/79; O2SAT 97
== END ==
LOC: M IRPOV 09:00
PROVIDERS: ATTEND Radiology Diagnostic Radiology
DX: Z45.2 Encounter for adjustment and management of vascular access device (principal); Z88.5 Allergy status to narcotic agent; Z88.8 Allergy status to other drugs, medicaments and biological substances; Z91.030 Bee allergy status

== ENCOUNTER → 2023-04-21 | Outpatient (CLI) | payer MEDICARE ==
[~2023-04-21] MED LIST changes: +GASTROGRAFIN SOLUTION 30ML As Ordered ONE; +ISOVUE-370 76% 100ML VIAL As Ordered ONE
== END ==
LOC: M RAD 09:06
PROVIDERS: ATTEND Internal Medicine Medical Oncology
DX: C25.9 Malignant neoplasm of pancreas, unspecified (principal)
CPT/HCPCS: 71260; 74177; Q9963; Q9967

== ENCOUNTER → 2023-04-22 | Outpatient (CLI) | payer MEDICARE ==
[~2023-04-22] MED LIST changes: -GASTROGRAFIN SOLUTION 30ML As Ordered ONE; -ISOVUE-370 76% 100ML VIAL As Ordered ONE
== END ==
LOC: M RAD 16:54
PROVIDERS: ATTEND Internal Medicine Pulmonary Disease
DX: F17.218 Nicotine dependence, cigarettes, with other nicotine-induced disorders (principal)

== ENCOUNTER 2023-06-29 09:57 | Outpatient (RCR) | payer MEDICARE | END 2023-07-13 | LOC: M ONCR 09:57 | PROVIDERS: ATTEND General Practice | DX: Z51.0 Encounter for antineoplastic radiation therapy (principal); C25.0 Malignant neoplasm of head of pancreas ==

== ENCOUNTER → 2023-07-07 | Outpatient (CLI) | payer MEDICARE ==
[2023-07-07 09:16] LABS: BASO # 0.1 10^3/uL (0.0-0.2); BASO % 0.5 % (0.0-1.0); EOS # 0.3 10^3/uL (0.0-0.5); EOS % 3.2 % (0.0-3.0); HEMATOCRIT 34.4 % (42.0-52.0); HEMOGLOBIN 11.9 g/dl (13.5-17.5); LYMPH # 1.4 10^3/uL (1.5-5.0); LYMPH % 14.5 % (24.0-44.0); MEAN CORPUSCULAR HEMOGLOBIN 30.7 pg (27.0-33.0); MEAN CORPUSCULAR HGB CONC 34.6 g/dl (32.0-36.5); MEAN CORPUSCULAR VOLUME 88.7 fl (80.0-96.0); MONO # 1.1 10^3/uL (0.0-0.8); MONO % 12.2 % (2.0-8.0); NEUTROPHILS # 6.5 10^3/uL (1.5-8.5); NEUTROPHILS % 69.2 % (36.0-66.0); PLATELET COUNT, AUTOMATED 270 10^3/uL (150-450); RED BLOOD COUNT 3.88 10^6/uL (4.30-6.10); WHITE BLOOD COUNT 9.4 10^3/uL (4.0-10.0)
[2023-07-07 09:33] LABS: ALBUMIN 3.5 G/DL (3.2-5.2); ALKALINE PHOSPHATASE 132 U/L (46-116); ALT/SGPT 18 U/L (7.0-40); AST/SGOT 37 U/L (<34); BILIRUBIN,DIRECT 0.2 MG/DL (<0.4); BILIRUBIN,TOTAL 0.4 MG/DL (0.3-1.2); BLOOD UREA NITROGEN 19 MG/DL (9-23); CREATININE FOR GFR 1.14 MG/DL (0.70-1.30); GLOMERULAR FILTRATION RATE > 60.0 (>49)
== END ==
LOC: M LAB 08:19
PROVIDERS: ATTEND Internal Medicine Gastroenterology
DX: C25.0 Malignant neoplasm of head of pancreas (principal)

== ENCOUNTER → 2023-09-10 | Outpatient (CLI) | payer MEDICARE ==
[~2023-09-10] MED LIST changes: +GASTROGRAFIN SOLUTION 30ML As Ordered ONE; +ISOVUE-370 76% 100ML VIAL As Ordered ONE; -OLME20TA2 PO; +OLME20TA50 PO
== END ==
LOC: M RAD 08:43
PROVIDERS: ATTEND Nurse Practitioner
DX: C25.9 Malignant neoplasm of pancreas, unspecified (principal)
CPT/HCPCS: 71260; 74177; Q9963; Q9967

== ENCOUNTER → 2023-12-28 | Outpatient (CLI) | payer MEDICARE ==
[~2023-12-28] MED LIST changes: +FAMO20TA PO; +FENT12DI8 TOP; +FENT1DIS14 TOP; +OXYC10TA12 PO; +PRED5PAK2 PO; +THERTAB52 PO
== END ==
LOC: M RAD 11:04
PROVIDERS: ATTEND Nurse Practitioner
DX: C25.9 Malignant neoplasm of pancreas, unspecified (principal); K52.9 Noninfective gastroenteritis and colitis, unspecified; R91.8 Other nonspecific abnormal finding of lung field
CPT/HCPCS: 71260; 74177; Q9963; Q9967

== ENCOUNTER → 2024-01-05 | Outpatient (CLI) | payer MEDICARE ==
[~2024-01-05] VITALS: Ht 180.3 cm; Wt 72.6 kg
[~2024-01-05] MED LIST changes: +FENT1DIS34 TOP; -GASTROGRAFIN SOLUTION 30ML As Ordered ONE; -ISOVUE-370 76% 100ML VIAL As Ordered ONE; +LEVO1TAB39 PO; +NEUR100C PO
[2024-01-05 09:38] VITALS: BP 127/72; O2SAT 100
== END ==
LOC: M PAL 09:24
PROVIDERS: ATTEND Nurse Practitioner Adult Health
DX: G62.9 Polyneuropathy, unspecified (principal); C25.9 Malignant neoplasm of pancreas, unspecified; C78.7 Secondary malignant neoplasm of liver and intrahepatic bile duct; R63.0 Anorexia; K59.00 Constipation, unspecified; F41.9 Anxiety disorder, unspecified; F32.A Depression, unspecified; Z51.5 Encounter for palliative care; Z92.21 Personal history of antineoplastic chemotherapy; Z79.01 Long term (current) use of anticoagulants; Z79.52 Long term (current) use of systemic steroids; Z79.891 Long term (current) use of opiate analgesic; Z79.899 Other long term (current) drug therapy; Z88.5 Allergy status to narcotic agent; Z87.891 Personal history of nicotine dependence; Z88.8 Allergy status to other drugs, medicaments and biological substances; Z91.030 Bee allergy status; Z95.5 Presence of coronary angioplasty implant and graft; Z86.711 Personal history of pulmonary embolism; Z86.718 Personal history of other venous thrombosis and embolism

== ENCOUNTER 2024-01-31 23:03 | Emergency (ER) | payer MEDICARE ==
[~2024-01-31] VITALS: Ht 180.3 cm; Wt 70.5 kg
[~2024-01-31 23:03] MED LIST changes: -POTA10CA60 PO; +POTA10CA70 PO
[2024-01-31 23:39] LABS: HEMATOCRIT 24.7 % (42.0-52.0); HEMOGLOBIN 8.7 g/dl (13.5-17.5); MEAN CORPUSCULAR HGB CONC 35.2 g/dl (32.0-36.5); MEAN CORPUSCULAR VOLUME 90.8 fl (80.0-96.0); PLATELET COUNT, AUTOMATED 199 10^3/uL (150-450); RED BLOOD COUNT 2.72 10^6/uL (4.30-6.10); WHITE BLOOD COUNT 18.3 10^3/uL (4.0-10.0)
[2024-02-01 00:07] LABS: LIPASE 16 U/L (12-53)
[2024-02-01 00:10] LABS: ALBUMIN 2.2 G/DL (3.2-5.2); ALKALINE PHOSPHATASE 105 U/L (46-116); ALT/SGPT 54 U/L (7.0-40); AST/SGOT 59 U/L (<34); BILIRUBIN,DIRECT 0.6 MG/DL (<0.4); BILIRUBIN,TOTAL 1.1 MG/DL (0.3-1.2); BLOOD UREA NITROGEN 25 MG/DL (9-23); CALCIUM LEVEL 7.9 MG/DL (8.3-10.6); CARBON DIOXIDE LEVEL 19 MMOL/L (20-31); CHLORIDE LEVEL 102 MMOL/L (98-107); CREATININE FOR GFR 0.65 MG/DL (0.70-1.30); GLOMERULAR FILTRATION RATE > 60.0 (>49); GLUCOSE, FASTING 85 MG/DL (74-106); POTASSIUM SERUM 4.4 MMOL/L (3.5-5.1); SODIUM LEVEL 128 MMOL/L (136-145); TOTAL PROTEIN 4.7 G/DL (5.7-8.2)
[2024-02-01 00:30] LABS: ANISOCYTOSIS 1+; EOSINOPHILS 1 % (0-3); LYMPHOCYTES 1 % (16-44); NEUTROPHILS 98 % (28-66); PLATELET ESTIMATE NORMAL (NORMAL)
[2024-02-01] MEDS ORDERED: ISOVUE-370 76% 100ML VIAL As Ordered ONE (00:32)
[2024-02-01] MEDS: PIPERACILLIN/TAZOBACTAM SOD 4.5 GM in D5W MINI-BAG PLUS 50 ML IV ONE (01:20)
[2024-02-01] MEDS ORDERED: LEVO1TAB40 PO (04:15)
[2024-02-01 04:25] LABS: MAGNESIUM LEVEL 1.4 MG/DL (1.8-2.4)
[2024-02-01] MEDS: LevoFLOXacin 750 MG TABLET PO ONE (04:26)
[2024-02-01 04:31] VITALS: BP 95/52; TEMP 100.1; O2SAT 93
== END 2024-02-01 04:32 | disposition home or self-care (01) ==
LOC: M ED 23:03
DX: J18.9 Pneumonia, unspecified organism (principal); E78.5 Hyperlipidemia, unspecified; F12.10 Cannabis abuse, uncomplicated; Z79.01 Long term (current) use of anticoagulants; Z79.1 Long term (current) use of non-steroidal anti-inflammatories (NSAID); Z79.52 Long term (current) use of systemic steroids; Z79.83 Long term (current) use of bisphosphonates; Z79.899 Other long term (current) drug therapy; Z86.718 Personal history of other venous thrombosis and embolism; Z87.891 Personal history of nicotine dependence; Z86.79 Personal history of other diseases of the circulatory system; Z88.5 Allergy status to narcotic agent; Z88.8 Allergy status to other drugs, medicaments and biological substances; Z91.030 Bee allergy status; Z85.07 Personal history of malignant neoplasm of pancreas; Z92.21 Personal history of antineoplastic chemotherapy
CPT/HCPCS: 71260; 74177; 80048; 80076; 81001; 83605; 83690; 83735; 84145; 85025; 87040; 87486; 87581; 87633; 87798; 93041; 96365; 96366; 99285; J2543; Q9967

== ENCOUNTER → 2024-02-15 | Outpatient (CLI) | payer MEDICARE ==
[~2024-02-15] VITALS: Ht 180.3 cm; Wt 70.6 kg
[~2024-02-15] MED LIST changes: +HYDR1CRE30 TOP; +ONDA-282 PO; -ONDA4TAB6 PO
[2024-02-15 09:49] VITALS: BP 107/58; O2SAT 99
== END ==
LOC: M PAL 09:31
PROVIDERS: ATTEND Nurse Practitioner Adult Health
DX: G62.9 Polyneuropathy, unspecified (principal); C25.9 Malignant neoplasm of pancreas, unspecified; C78.7 Secondary malignant neoplasm of liver and intrahepatic bile duct; R10.84 Generalized abdominal pain; R63.0 Anorexia; K59.00 Constipation, unspecified; F41.9 Anxiety disorder, unspecified; F32.A Depression, unspecified; R43.9 Unspecified disturbances of smell and taste; Z51.5 Encounter for palliative care; Z92.21 Personal history of antineoplastic chemotherapy; Z79.01 Long term (current) use of anticoagulants; Z79.52 Long term (current) use of systemic steroids; Z79.891 Long term (current) use of opiate analgesic; Z79.899 Other long term (current) drug therapy; Z87.891 Personal history of nicotine dependence; Z88.5 Allergy status to narcotic agent; Z88.8 Allergy status to other drugs, medicaments and biological substances; Z91.030 Bee allergy status; Z95.5 Presence of coronary angioplasty implant and graft; Z86.711 Personal history of pulmonary embolism; Z86.718 Personal history of other venous thrombosis and embolism

== ENCOUNTER 2024-03-20 08:41 | Inpatient (IN) | payer MEDICARE ==
[2024-03-20] VITALS (24 sets, daily range): BP systolic 86–143; BP diastolic 48–78; TEMP 97.3–98.5; O2SAT 97–100
[~2024-03-20] VITALS: Ht 175.3 cm; Wt 65.0 kg
[~2024-03-20 08:41] MED LIST changes: +FURO20TA2 PO; +OXYC1CAP2 PO
[2024-03-20] MEDS ORDERED: fentaNYL 25 MCG/HR PATCH TD SCH (09:00)
[2024-03-20] MEDS ORDERED: fentaNYL 25 MCG/HR PATCH TOP SCH (09:00)
[2024-03-20] MEDS: FUROSEMIDE 20 MG TAB PO SCH (09:00)
[2024-03-20] MEDS: OMEPRAZOLE 20MG CAP PO SCH (09:00)
[2024-03-20] MEDS: POTASSIUM CHLORIDE 10MEQ SR TABLET PO SCH (09:00)
[2024-03-20] MEDS: ASPIRIN 81MG ENTERIC TABLET PO SCH (09:00)
[2024-03-20] MEDS ORDERED: FENTANYL REMOVAL DOCUMENTATION MISC XX SCH ×3 (09:00→13:10)
[2024-03-20] MEDS ORDERED: ISOVUE-370 76% 100ML VIAL As Ordered ONE (09:18)
[2024-03-20 09:22] LABS: VENOUS BASE EXCESS 1.9 (-2.0-2.0); VENOUS HCO3 25.3 MMOL/L (23.0-27.0); VENOUS O2 SATURATION 93.1 % (60.0-80.0); VENOUS PARTIAL PRESSURE CO2 34.8 mmHg (38.0-50.0); VENOUS PARTIAL PRESSURE O2 59.7 mmHg (30.0-50.0); VENOUS STANDARD HCO3 26.1 MMOL/L; VENOUS TOTAL CO2 26.4 MMOL/L (24.0-28.0)
[2024-03-20 09:26] LABS: BASO # 0.1 10^3/uL (0.0-0.2); BASO % 0.2 % (0.0-1.0); EOS % 0.2 % (0.0-3.0); HEMOGLOBIN 8.1 g/dl (13.5-17.5); LYMPH # 1.2 10^3/uL (1.5-5.0); LYMPH % 4.5 % (24.0-44.0); MEAN CORPUSCULAR HEMOGLOBIN 32.5 pg (27.0-33.0); MEAN CORPUSCULAR HGB CONC 33.8 g/dl (32.0-36.5); MEAN CORPUSCULAR VOLUME 96.4 fl (80.0-96.0); MONO # 2.5 10^3/uL (0.0-0.8); MONO % 9.5 % (2.0-8.0); NEUTROPHILS # 21.8 10^3/uL (1.5-8.5); NEUTROPHILS % 84.1 % (36.0-66.0); PLATELET COUNT, AUTOMATED 289 10^3/uL (150-450); RED BLOOD COUNT 2.49 10^6/uL (4.30-6.10); WHITE BLOOD COUNT 25.9 10^3/uL (4.0-10.0)
[2024-03-20 09:38] LABS: INR 1.26; PARTIAL THROMBOPLASTIN TIME 36.5 SECONDS (24.8-34.2); PROTHROMBIN TIME 15.4 SECONDS (12.5-14.5)
[2024-03-20 09:53] LABS: LIPASE 462 U/L (12-53)
[2024-03-20 09:55] LABS: ALKALINE PHOSPHATASE 551 U/L (46-116); ALT/SGPT 79 U/L (7.0-40); AST/SGOT 246 U/L (<34); BILIRUBIN,DIRECT 0.7 MG/DL (<0.4); CK-MB VALUE MASS < 1.0 NG/ML (<3.6); CPK CREATINE PHOSPHOKINASE 28 U/L (46-171); MB/CK RELATIVE INDEX 3.57 (< OR =4); TOTAL PROTEIN 4.5 G/DL (5.7-8.2)
[2024-03-20] MEDS: fentaNYL 100 MCG/2 ML INJECTION IV ONE (10:30)
[2024-03-20] MEDS ORDERED: FENT12DI12 TD (12:11)
[2024-03-20] MEDS ORDERED: FENT1DIS14 TD (12:12)
[2024-03-20] MEDS ORDERED: FURO20TA2 PO (12:13)
[2024-03-20] MEDS ORDERED: ESSE250T PO (12:15)
[2024-03-20] MEDS ORDERED: OXYC-517 PO (12:21)
[2024-03-20] MEDS ORDERED: PROC10TA5 PO (12:23)
[2024-03-20] MEDS ORDERED: ASPI81TA26 PO (12:23)
[2024-03-20] MEDS ORDERED: SENN-193 PO (12:25)
[2024-03-20] MEDS ORDERED: HOME MED LIST COMPLETE! XX SCH (12:30)
[2024-03-20] MEDS ORDERED: PROCHLORPERAZINE 5MG TAB PO PRN (13:10)
[2024-03-20] MEDS ORDERED: SENNA 8.6 MG TAB (SENOKOT) PO PRN (13:10)
[2024-03-20] MEDS ORDERED: NS 1,000 ML IV SCH (13:25)
[2024-03-20] MEDS ORDERED: CEFEPIME HCL 1 GM in D5W MINI-BAG PLUS 50 ML IV SCH (13:30)
[2024-03-20] MEDS ORDERED: SENOKOT S TAB PO PRN (13:35)
[2024-03-20] MEDS ORDERED: MIRALAX *UNIT DOSE* 17GM PACKET PO PRN (13:35)
[2024-03-20 13:42] LABS: PROCALCITONIN 0.29 ng/ml
[2024-03-20] MEDS: NS 500 ML IV ONE (13:58)
[2024-03-20] MEDS: FENTANYL REMOVAL DOCUMENTATION MISC XX SCH ×2 (14:10)
[2024-03-20 14:21] LABS: THYROID STIMULATING HORMONE 1.917 uIU/ML (0.55-4.78)
[2024-03-20] MEDS: oxyCODONE 5MG TAB PO PRN (15:37)
[2024-03-20] MEDS: fentaNYL 25 MCG/HR PATCH TOP SCH (15:37)
[2024-03-20] MEDS: NS 1,000 ML IV SCH (15:50)
[2024-03-20] MEDS: CEFEPIME HCL 2 GM in D5W MINI-BAG PLUS 50 ML IV SCH (16:00)
[2024-03-20] MEDS: OCTREOTIDE ACETATE 1,200 MCG in NS 238.8 ML IV SCH (16:13)
[2024-03-20 16:24] LABS: MEAN CORPUSCULAR HEMOGLOBIN 32.7 pg (27.0-33.0); MEAN CORPUSCULAR HGB CONC 32.8 g/dl (32.0-36.5); MEAN CORPUSCULAR VOLUME 99.5 fl (80.0-96.0); PLATELET COUNT, AUTOMATED 254 10^3/uL (150-450); RED BLOOD COUNT 1.96 10^6/uL (4.30-6.10); WHITE BLOOD COUNT 27.9 10^3/uL (4.0-10.0)
[2024-03-20 16:25] LABS: HEMOGLOBIN 6.4 g/dl (13.5-17.5)
[2024-03-20 16:26] LABS: HEMATOCRIT 19.5 % (42.0-52.0)
[2024-03-20] MEDS: PANTOPRAZOLE 40MG VIAL IV ONE (17:16)
[2024-03-20] MEDS: PANTOPRAZOLE SODIUM 40 MG in D5W 50 ML IV SCH (17:16)
[2024-03-20] MEDS: OCTREOTIDE ACETATE 100MCG/ML VIAL **IV ADMINISTRATION ONLY IV ONE (17:17)
[2024-03-20] MEDS: FACTOR XA,INACTIVATED-ZHZO 400 MG in APPROPRIATE DILUENT 40 ML IV ONE (18:05)
[2024-03-20] MEDS: FACTOR XA,INACTIVATED-ZHZO 480 MG in APPROPRIATE DILUENT 48 ML IV ONE (18:20)
[2024-03-20 20:30] LABS: BASO % 0.1 % (0.0-1.0); HEMOGLOBIN 8.3 g/dl (13.5-17.5); LYMPH % 2.8 % (24.0-44.0); MEAN CORPUSCULAR HGB CONC 34.6 g/dl (32.0-36.5); MEAN CORPUSCULAR VOLUME 92.7 fl (80.0-96.0); MONO % 8.8 % (2.0-8.0); NEUTROPHILS # 29.3 10^3/uL (1.5-8.5); NEUTROPHILS % 85.6 % (36.0-66.0); PLATELET COUNT, AUTOMATED 189 10^3/uL (150-450); RED BLOOD COUNT 2.59 10^6/uL (4.30-6.10)
[2024-03-20 20:35] LABS: WHITE BLOOD COUNT 34.2 10^3/uL (4.0-10.0)
[2024-03-20 20:47] LABS: ALKALINE PHOSPHATASE 546 U/L (46-116); ALT/SGPT 129 U/L (7.0-40); AST/SGOT 326 U/L (<34); BILIRUBIN,TOTAL 2.7 MG/DL (0.3-1.2); BLOOD UREA NITROGEN 24 MG/DL (9-23); CALCIUM LEVEL 7.9 MG/DL (8.3-10.6); CARBON DIOXIDE LEVEL 23 MMOL/L (20-31); CHLORIDE LEVEL 106 MMOL/L (98-107); CREATININE FOR GFR 0.68 MG/DL (0.70-1.30); GLOMERULAR FILTRATION RATE > 60.0 (>49); GLUCOSE, FASTING 103 MG/DL (74-106); MAGNESIUM LEVEL 1.7 MG/DL (1.8-2.4); POTASSIUM SERUM 5.8 MMOL/L (3.5-5.1); SODIUM LEVEL 134 MMOL/L (136-145); TOTAL PROTEIN 4.4 G/DL (5.7-8.2)
[2024-03-20] MEDS ORDERED: METOPROLOL TART 25 MG TABLET PO SCH (21:00)
[2024-03-20] MEDS: ursodioL 300MG CAP PO SCH (22:32)
[2024-03-21] VITALS (23 sets, daily range): BP systolic 138–196; BP diastolic 63–88; TEMP 97.7–98.7; O2SAT 95–100
[2024-03-21] MEDS: VANCOMYCIN HCL 500 MG in D5W MINI-BAG PLUS 100 ML IV ONE (00:46)
[2024-03-21] MEDS: MAG SULF 1GM/100ML (MAG RUN) 1 GM in IV 1 EA IV SCH (00:47)
[2024-03-21] MEDS: PATIROMER SORBITEX CALCIUM 8.4 GM POWDER PACKET (VELTASSA) PO ONE ×2 (00:52→06:43)
[2024-03-21] MEDS: VANCOMYCIN HCL 750 MG, VIAL MATE ADAPTER 1 EACH in D5W 250 ML IV ONE (02:05)
[2024-03-21 05:33] LABS: MEAN CORPUSCULAR HEMOGLOBIN 32.4 pg (27.0-33.0); MEAN CORPUSCULAR HGB CONC 35.3 g/dl (32.0-36.5); MEAN CORPUSCULAR VOLUME 91.7 fl (80.0-96.0); PLATELET COUNT, AUTOMATED 159 10^3/uL (150-450); RED BLOOD COUNT 2.04 10^6/uL (4.30-6.10); WHITE BLOOD COUNT 29.6 10^3/uL (4.0-10.0)
[2024-03-21 05:38] LABS: INR 1.22
[2024-03-21 05:43] LABS: HEMATOCRIT 18.7 % (42.0-52.0); HEMOGLOBIN 6.6 g/dl (13.5-17.5)
[2024-03-21 05:55] LABS: ALKALINE PHOSPHATASE 451 U/L (46-116); ALT/SGPT 105 U/L (7.0-40); AST/SGOT 196 U/L (<34); BILIRUBIN,TOTAL 1.5 MG/DL (0.3-1.2); BLOOD UREA NITROGEN 30 MG/DL (9-23); CALCIUM LEVEL 7.8 MG/DL (8.3-10.6); CARBON DIOXIDE LEVEL 24 MMOL/L (20-31); CHLORIDE LEVEL 103 MMOL/L (98-107); CREATININE FOR GFR 0.78 MG/DL (0.70-1.30); GLOMERULAR FILTRATION RATE > 60.0 (>49); GLUCOSE, FASTING 131 MG/DL (74-106); MAGNESIUM LEVEL 2.1 MG/DL (1.8-2.4); POTASSIUM SERUM 5.5 MMOL/L (3.5-5.1); SODIUM LEVEL 129 MMOL/L (136-145); TOTAL PROTEIN 4.3 G/DL (5.7-8.2)
[2024-03-21] MEDS ORDERED: VANCOMYCIN HCL 1,000 MG, VIAL MATE ADAPTER 1 EACH in D5W 250 ML IV SCH (08:00)
[2024-03-21] MEDS: fentaNYL 100 MCG/2 ML INJECTION IV PRN (09:05)
[2024-03-21] MEDS: FUROSEMIDE 20MG/2ML VIAL IV SCH (09:40)
[2024-03-21] MEDS: METOPROLOL TART 25 MG TABLET PO SCH (09:41)
[2024-03-21] MEDS: ENOXAPARIN 40MG/0.4ML SYRINGE (J1650 PER 10MG) SC SCH (09:41)
[2024-03-21] MEDS: SUCRALFATE SUSP 1GM/10ML UD PO SCH (12:52)
[2024-03-21] MEDS ORDERED: hydrALAZINE 20MG/ML 1ML VIAL IV PRN (13:35)
[2024-03-21] MEDS: OCTREOTIDE ACETATE 1,200 MCG in NS 238.8 ML IV SCH (16:16)
[2024-03-21 18:40] LABS: BASO % 0.2 % (0.0-1.0); EOS % 0.1 % (0.0-3.0); HEMOGLOBIN 7.7 g/dl (13.5-17.5); LYMPH # 1.2 10^3/uL (1.5-5.0); LYMPH % 6.4 % (24.0-44.0); MEAN CORPUSCULAR HEMOGLOBIN 32.5 pg (27.0-33.0); MEAN CORPUSCULAR VOLUME 92.8 fl (80.0-96.0); MONO # 2.3 10^3/uL (0.0-0.8); MONO % 11.6 % (2.0-8.0); NEUTROPHILS # 15.6 10^3/uL (1.5-8.5); NEUTROPHILS % 80.4 % (36.0-66.0); PLATELET COUNT, AUTOMATED 142 10^3/uL (150-450); RED BLOOD COUNT 2.37 10^6/uL (4.30-6.10); WHITE BLOOD COUNT 19.4 10^3/uL (4.0-10.0)
[2024-03-21 19:07] LABS: BLOOD UREA NITROGEN 29 MG/DL (9-23); CALCIUM LEVEL 8.2 MG/DL (8.3-10.6); CARBON DIOXIDE LEVEL 23 MMOL/L (20-31); CHLORIDE LEVEL 102 MMOL/L (98-107); CREATININE FOR GFR 0.73 MG/DL (0.70-1.30); GLOMERULAR FILTRATION RATE > 60.0 (>49); GLUCOSE, FASTING 105 MG/DL (74-106); POTASSIUM SERUM 4.9 MMOL/L (3.5-5.1); SODIUM LEVEL 130 MMOL/L (136-145)
[2024-03-22 00:12] VITALS: BP 137/64; TEMP 99; O2SAT 96
[2024-03-22 05:34] LABS: BASO % 0.2 % (0.0-1.0); EOS # 0.1 10^3/uL (0.0-0.5); EOS % 0.4 % (0.0-3.0); HEMOGLOBIN 7.2 g/dl (13.5-17.5); LYMPH # 1.2 10^3/uL (1.5-5.0); LYMPH % 7.6 % (24.0-44.0); MEAN CORPUSCULAR HGB CONC 34.8 g/dl (32.0-36.5); MONO # 2.1 10^3/uL (0.0-0.8); NEUTROPHILS # 12.4 10^3/uL (1.5-8.5); NEUTROPHILS % 77.4 % (36.0-66.0); PLATELET COUNT, AUTOMATED 155 10^3/uL (150-450); RED BLOOD COUNT 2.25 10^6/uL (4.30-6.10); WHITE BLOOD COUNT 16.1 10^3/uL (4.0-10.0)
[2024-03-22 05:38] LABS: HEMATOCRIT 20.7 % (42.0-52.0)
[2024-03-22 06:24] LABS: INR 1.13; PROTHROMBIN TIME 14.2 SECONDS (12.5-14.5)
[2024-03-22 07:55] VITALS: BP 141/76; TEMP 98.6; O2SAT 97
[2024-03-22] MEDS: OCTREOTIDE ACETATE 100MCG/ML VIAL **IV ADMINISTRATION ONLY IV SCH (08:42)
[2024-03-22] MEDS: SODIUM CHLORIDE 0.9% INJ 10 ML SYR IV SCH (08:43)
[2024-03-22] MEDS ORDERED: PANTOPRAZOLE 40MG VIAL IV SCH (09:00)
[2024-03-22 16:34] VITALS: BP 143/65; TEMP 98; O2SAT 97
[2024-03-22 19:09] LABS: HEMATOCRIT 22.1 % (42.0-52.0); HEMOGLOBIN 7.8 g/dl (13.5-17.5); MEAN CORPUSCULAR HEMOGLOBIN 33.1 pg (27.0-33.0); MEAN CORPUSCULAR HGB CONC 35.3 g/dl (32.0-36.5); MEAN CORPUSCULAR VOLUME 93.6 fl (80.0-96.0); PLATELET COUNT, AUTOMATED 182 10^3/uL (150-450); RED BLOOD COUNT 2.36 10^6/uL (4.30-6.10); WHITE BLOOD COUNT 19.2 10^3/uL (4.0-10.0)
[2024-03-22 19:50] VITALS: BP 126/70; TEMP 98.6; O2SAT 97
[2024-03-22] MEDS: PANTOPRAZOLE 40MG VIAL IV SCH (20:26)
[2024-03-22 23:47] LABS: BLOOD UREA NITROGEN 22 MG/DL (9-23); CARBON DIOXIDE LEVEL 25 MMOL/L (20-31); CHLORIDE LEVEL 102 MMOL/L (98-107); CREATININE FOR GFR 0.63 MG/DL (0.70-1.30); GLOMERULAR FILTRATION RATE > 60.0 (>49); GLUCOSE, FASTING 105 MG/DL (74-106); MAGNESIUM LEVEL 1.6 MG/DL (1.8-2.4); POTASSIUM SERUM 3.8 MMOL/L (3.5-5.1); SODIUM LEVEL 131 MMOL/L (136-145)
[2024-03-22 23:50] VITALS: BP 132/63; TEMP 97.3; O2SAT 97
[2024-03-23] VITALS (14 sets, daily range): BP systolic 106–168; BP diastolic 56–77; TEMP 97.3–99.5; O2SAT 92–99
[2024-03-23] MEDS: POTASSIUM CHLORIDE 10% LIQ 20MEQ/15ML UDC PO ONE (01:09)
[2024-03-23] MEDS: MAG SULF 1GM/100ML (MAG RUN) 1 GM in IV 1 EA IV SCH (02:19)
[2024-03-23 05:03] LABS: HEMOGLOBIN 7.1 g/dl (13.5-17.5); MEAN CORPUSCULAR HEMOGLOBIN 32.3 pg (27.0-33.0); MEAN CORPUSCULAR HGB CONC 34.1 g/dl (32.0-36.5); MEAN CORPUSCULAR VOLUME 94.5 fl (80.0-96.0); PLATELET COUNT, AUTOMATED 174 10^3/uL (150-450); WHITE BLOOD COUNT 18.1 10^3/uL (4.0-10.0)
[2024-03-23 05:05] LABS: HEMATOCRIT 20.8 % (42.0-52.0)
[2024-03-23 05:11] LABS: INR 1.14; PROTHROMBIN TIME 14.3 SECONDS (12.5-14.5)
[2024-03-23 05:31] LABS: ALBUMIN 1.9 G/DL (3.2-5.2); ALKALINE PHOSPHATASE 261 U/L (46-116); ALT/SGPT 44 U/L (7.0-40); AST/SGOT 39 U/L (<34); BILIRUBIN,TOTAL 0.6 MG/DL (0.3-1.2); BLOOD UREA NITROGEN 19 MG/DL (9-23); CARBON DIOXIDE LEVEL 26 MMOL/L (20-31); CHLORIDE LEVEL 101 MMOL/L (98-107); CREATININE FOR GFR 0.53 MG/DL (0.70-1.30); GLOMERULAR FILTRATION RATE > 60.0 (>49); GLUCOSE, FASTING 138 MG/DL (74-106); POTASSIUM SERUM 3.9 MMOL/L (3.5-5.1); SODIUM LEVEL 131 MMOL/L (136-145); TOTAL PROTEIN 4.4 G/DL (5.7-8.2)
[2024-03-23 07:36] LABS: PROCALCITONIN 1.08 ng/ml
[2024-03-23] MEDS ORDERED: propofoL 200 MG/20 ML VIAL As Ordered ONE (15:00)
[2024-03-23] MEDS ORDERED: LIDOCAINE 2% 100MG/5ML SDV (FOR ANES.) As Ordered ONE (15:00)
[2024-03-23] MEDS ORDERED: fentaNYL 100 MCG/2 ML INJECTION As Ordered ONE (15:00)
[2024-03-23] MEDS ORDERED: ONDANSETRON 4MG 2ML VIAL As Ordered ONE (15:00)
[2024-03-23] MEDS: LR 1,000 ML IV SCH (16:05)
[2024-03-23 16:42] LABS: HEMATOCRIT 28.9 % (42.0-52.0)
[2024-03-23 16:44] LABS: HEMOGLOBIN 10.3 g/dl (13.5-17.5)
[2024-03-23] MEDS: cefTRIAXone SOD 2 GM in D5W MINI-BAG PLUS 50 ML IV SCH (16:56)
[2024-03-23 23:07] LABS: HEMATOCRIT 27.5 % (42.0-52.0); HEMOGLOBIN 9.6 g/dl (13.5-17.5)
[2024-03-24 03:19] LABS: HEMATOCRIT 28.2 % (42.0-52.0); MEAN CORPUSCULAR HEMOGLOBIN 32.6 pg (27.0-33.0); MEAN CORPUSCULAR HGB CONC 35.5 g/dl (32.0-36.5); MEAN CORPUSCULAR VOLUME 91.9 fl (80.0-96.0); PLATELET COUNT, AUTOMATED 241 10^3/uL (150-450); RED BLOOD COUNT 3.07 10^6/uL (4.30-6.10)
[2024-03-24 03:24] VITALS: BP 123/69; TEMP 98; O2SAT 96
[2024-03-24 03:37] LABS: INR 1.13; PROTHROMBIN TIME 14.2 SECONDS (12.5-14.5)
[2024-03-24 03:45] LABS: ALBUMIN 1.9 G/DL (3.2-5.2); ALKALINE PHOSPHATASE 237 U/L (46-116); ALT/SGPT 34 U/L (7.0-40); AST/SGOT 28 U/L (<34); BILIRUBIN,TOTAL 0.7 MG/DL (0.3-1.2); BLOOD UREA NITROGEN 13 MG/DL (9-23); CALCIUM LEVEL 7.6 MG/DL (8.3-10.6); CARBON DIOXIDE LEVEL 27 MMOL/L (20-31); CHLORIDE LEVEL 102 MMOL/L (98-107); CREATININE FOR GFR 0.51 MG/DL (0.70-1.30); GLOMERULAR FILTRATION RATE > 60.0 (>49); GLUCOSE, FASTING 104 MG/DL (74-106); POTASSIUM SERUM 3.6 MMOL/L (3.5-5.1); SODIUM LEVEL 134 MMOL/L (136-145); TOTAL PROTEIN 4.5 G/DL (5.7-8.2)
[2024-03-24 07:29] VITALS: BP 123/70; TEMP 97.4; O2SAT 96
[2024-03-24] MEDS ORDERED: ATROPINE SULFATE 1% OPHTH SOLN 2ML BTL SL PRN (08:15)
[2024-03-24] MEDS ORDERED: SCOPOLAMINE 1MG TRANSDERMAL PATCH TOP PRN (08:15)
[2024-03-24] MEDS ORDERED: LORazepam 1 MG TAB PO PRN (08:15)
[2024-03-24] MEDS: ACETAMINOPHEN 650MG ER TAB (TYLENOL ARTHRITIS) PO PRN (19:00)
[2024-03-24 20:26] VITALS: BP 146/68; TEMP 98; O2SAT 97
[2024-03-25] MEDS ORDERED: MIRA33506 PO (07:45)
== END 2024-03-25 11:38 | disposition hospice, home (50) | DRG 374 ==
LOC: M ED 08:41 → EDBD 08:41 → M ED INP 08:42 → CANBEDREQ 12:36 → M MSPAV 15:01 → M ICU 15:57 → OBSVTOIN 03-21 10:06 → M PCU 03-22 21:05
PROVIDERS: ADMIT Hospitalist; ATTEND Internal Medicine Pulmonary Disease
PROC: 30233N1 Transfusion of Nonautologous Red Blood Cells into Peripheral Vein, Percutaneous Approach (ICD-10-PCS; principal; 2024-03-20)
PROC: 0DJ08ZZ Inspection of Upper Intestinal Tract, Via Natural or Artificial Opening Endoscopic (ICD-10-PCS; 2024-03-23)
DX: C78.4 Secondary malignant neoplasm of small intestine (principal); R57.8 Other shock; R57.1 Hypovolemic shock; K72.00 Acute and subacute hepatic failure without coma; C78.7 Secondary malignant neoplasm of liver and intrahepatic bile duct; C25.9 Malignant neoplasm of pancreas, unspecified; D62 Acute posthemorrhagic anemia; K92.2 Gastrointestinal hemorrhage, unspecified; E87.1 Hypo-osmolality and hyponatremia; D68.59 Other primary thrombophilia; Z66 Do not resuscitate; R19.7 Diarrhea, unspecified; K73.9 Chronic hepatitis, unspecified; E86.0 Dehydration; R55 Syncope and collapse; R74.01 Elevation of levels of liver transaminase levels; I95.9 Hypotension, unspecified; I25.10 Atherosclerotic heart disease of native coronary artery without angina pectoris; M10.9 Gout, unspecified; W19.XXXA Unspecified fall, initial encounter; E78.5 Hyperlipidemia, unspecified; I10 Essential (primary) hypertension; G89.29 Other chronic pain; B96.1 Klebsiella pneumoniae [K. pneumoniae] as the cause of diseases classified elsewhere; G89.3 Neoplasm related pain (acute) (chronic); Z79.01 Long term (current) use of anticoagulants; Z79.52 Long term (current) use of systemic steroids; Z79.899 Other long term (current) drug therapy; Z91.030 Bee allergy status; Z88.5 Allergy status to narcotic agent; Z88.8 Allergy status to other drugs, medicaments and biological substances; Z95.5 Presence of coronary angioplasty implant and graft; Z86.711 Personal history of pulmonary embolism; Z86.718 Personal history of other venous thrombosis and embolism; Z87.891 Personal history of nicotine dependence; Y92.9 Unspecified place or not applicable; Y93.9 Activity, unspecified